=== PATIENT | female | born 1960 | race Caucasian/White ===

== ENCOUNTER → 2016-06-01 | Outpatient (CLI) | payer BC ==
[~2016-06-01] MED LIST: AMLO-114 PO; ATOR-24 PO; CHOL1000 PO; COEN75CA PO; GLC500 PO; HYDR-5688 PO; LOSA50TA6 PO; LOSARTAN HCTZ PO; MAGN400T6 PO; MULT-506 PO; [UNRECOGNIZED DRUG - REMARK] PO
--- NOTE | 2016-06-01 12:56 | DIAGNOSTIC IMAGING REPORT ---
CHEST 2 VIEWS ROUTINE CLINICAL HISTORY: Abdominal pain. COMPARISON STUDY: Chest radiograph July 14, 2006. FINDINGS: No lucency is identified under the hemidiaphragms to suggest pneumoperitoneum on this exam. Cardiac size is normal. Mediastinal contours are normal. There is no evidence of pulmonary edema. No consolidation is identified. IMPRESSION: No acute cardiopulmonary findings. Electronically signed by: Anselmo Emanuel M.D. 06/01/2016 12:55 PM Dictated Date/Time: 06/01/2016 12:54 PM
== END | disposition home or self-care (01) ==
LOC: C.RAD1850 11:50
PROVIDERS: ATTEND Family Medicine
DX: R10.9 Unspecified abdominal pain (principal)

== ENCOUNTER → 2016-06-01 | Outpatient (CLI) | payer BC ==
--- NOTE | 2016-06-01 09:47 | DIAGNOSTIC IMAGING REPORT ---
ABDOMEN COMPLETE (US) CLINICAL HISTORY: ABDOMINAL PAIN COMPARISON STUDY: No previous studies for comparison. FINDINGS: The liver is of increased echogenicity, consistent with hepatic steatosis. There is a 5 cm hypoechoic focus within the josé luis hepatis, possibly representing focal fatty sparing. Additional imaging is recommended in follow-up for confirmation. Multiple gallstones and sludge are visualized within the gallbladder. There is gallbladder wall thickening. In the setting of right upper quadrant abdominal pain, acute cholecystitis must be considered. There is dilatation of the common bile duct which measures 9 mm. The spleen measures 10 cm in length. No splenic masses are visualized. The right kidney measures 13.3 cm in length, the left kidney measures 13.4 cm in length. No renal masses are visualized. There is no evidence of hydronephrosis. There is a 32 mm hypoechoic lesion superior to the right kidney. This likely represents an adrenal nodule. Additional imaging is recommended in follow-up for further evaluation There is no evidence of abdominal aortic aneurysm. IMPRESSION: 1. Multiple gallstones and sludge within the gallbladder. Gallbladder wall thickening. In the setting of right upper quadrant abdominal pain, acute cholecystitis was be considered 2. 32 mm mass superior to the right kidney, likely adrenal in origin. Additional imaging is recommended in follow-up 3. Hepatic steatosis. 5 cm hypoechoic focus in the josé luis hepatis, possibly representing focal fatty sparing. Additional imaging is recommended in follow-up for confirmation. 4. This report will be called to the referring clinician. Electronically signed by: Sarthak Antonio M.D. 06/01/2016 9:46 AM Dictated Date/Time: 06/01/2016 9:39 AM
== END | disposition home or self-care (01) ==
LOC: C.ULTR 08:35
PROVIDERS: ATTEND Family Medicine
DX: K80.20 Calculus of gallbladder without cholecystitis without obstruction (principal); R19.09 Other intra-abdominal and pelvic swelling, mass and lump; K76.0 Fatty (change of) liver, not elsewhere classified

== ENCOUNTER 2016-06-08 10:51 | Day surgery (SDC) | payer BC, OTHER ==
[2016-06-03 15:58] VITALS: BMI 40.0
--- NOTE | 2016-06-07 14:25 | Anesthesiology Progress Note ---
Anesthesia Progress Note Date of Service Jun 07, 2016. Progress Notes Patient was chart review for PAT. Chart was not seen for review until Tuesday for surgery scheduled for Tuesday06/08/16. Patient's most recent PCP note from 06/01/16 was reviewed. Per plan from PCP note, patient was to be scheduled with general surgery for gallbladder issues/melissa. Patient also was ordered to have a CT scan done and referred to oncology for possible adrenal mass/nodule from 06/01/16 ultrasound. Per patient, when she was seen by Dr. Fermin (PCP) she was told adrenal mass was incidental finding and that it could be imaging error but that CT scan was recommended. Per patient, PCP told her that it was something that needed done in the future but was not emergent. Patient was seen by general surgery and scheduled for cholecystectomy. Surgeon aware of adrenal mass and did not feel that it would effect surgery. Note was initially written to PCP inquiring if CT scan needed done prior to surgery. Per PCP, " I think its better to get CT done before surgery." Nurse from PCP called patient to schedule CT scan for 06/08 but found that patient was already scheduled for melissa the same day. Patient decided she wanted to have gallbladder first. Spoke with PCP nurse, Travis, who stated that Dr. Fermin recommended that patient had CT done first but that patient did not have to cancel surgery without CT scan. PCP's office did not realize melissa had already been scheduled. He was leaving it to patient's discretion and would not clear patient for surgery without appointment. Patient surgery scheduled for tomorrow. Discussed with anesthesiologist. Patient was not seen in PAT for appointment. Patient will be re-evaluated AM of surgery. If any signs or symptoms of adrenal issues noted, patient surgery will be cancelled. Surgeon's office and patient were both informed of this.
[~2016-06-08] VITALS: Ht 175.3 cm; Wt 127.5 kg
[~2016-06-08 10:51] MED LIST changes: +CEFAZOLIN 3000 MG/65 ML D5W IV SCH; +HEPARIN SOD 5000 UNIT/0.5 ML CARP SQ SCH; -HYDR-5688 PO; +LACTATED RINGER'S 1000ML 1,000 ML IV SCH; -LOSARTAN HCTZ PO; -MULT-506 PO; -[UNRECOGNIZED DRUG - REMARK] PO
[2016-06-08 11:17] VITALS: BP 170/79; PULSE 73; TEMP 37.1; O2SAT 96; Ht 175.3 cm; Wt 127.5 kg
--- NOTE | 2016-06-08 11:49 | History & Physical Bridge Note ---
H&P Re-Evaluation Bridge Note: I have examined the patient, reviewed the History & Physical and in the interval since the performance of the History & Physical I have noted the following changes of clinical significance: No changes noted
[2016-06-08] MEDS ORDERED: SUCCINYLCHOLINE CHLORIDE 20 MG/ML 10 ML VIAL IV ONE (12:05)
[2016-06-08] MEDS ORDERED: ONDANSETRON INJ 2 MG/ML 2 ML VIAL ONE (12:05)
[2016-06-08] MEDS ORDERED: NEOSTIGMINE METHYLSULFATE 5 MG/5 ML SYR ONE (12:05)
[2016-06-08] MEDS ORDERED: EpHEDrine SULFATE INJ 50 MG/ML AMP ONE ×2 (12:05→13:07)
[2016-06-08] MEDS ORDERED: LIDOCAINE HCL 2% 2 ML VIAL (20MG/ML) ONE ×2 (12:05→13:04)
[2016-06-08] MEDS ORDERED: ROCURONIUM BROMIDE 10 MG/ML 5 ML VIAL ONE (12:05)
[2016-06-08] MEDS ORDERED: PROPOFOL IV EMULSION 10 MG/ML 20 ML VIAL IV ONE ×2 (12:05→13:04)
[2016-06-08] MEDS ORDERED: GLYCOPYRROLATE INJ 0.2 MG/ML VIAL ONE ×2 (12:05→13:05)
[2016-06-08] MEDS ORDERED: PHENYLEPHRINE HCL INJ 10 MG/ML VIAL ONE ×2 (12:05→13:07)
[2016-06-08] MEDS ORDERED: DEXAMETHASONE SOD INJ 4 MG/ML VIAL ONE (12:05)
[2016-06-08] MEDS ORDERED: FENTANYL CITRATE INJ 50 MCG/1 ML 2 ML VIAL ONE ×2 (12:06→12:31)
[2016-06-08] MEDS ORDERED: MIDAZOLAM HCL 1 MG/ML 2ML VIAL ONE (12:06)
[2016-06-08] MEDS ORDERED: ACETAMINOPHEN 1000 MG/100 ML IV IV ONE (12:08)
[2016-06-08] MEDS ORDERED: BUPIVACAINE/EPINEPHRINE 0.5% MPF 1:200,000 30 ML VIAL ONE (12:39)
[2016-06-08] MEDS ORDERED: ONDANSETRON INJ 2 MG/ML 2 ML VIAL IV PRN ×2 (13:15→14:15)
[2016-06-08] MEDS ORDERED: ATROPINE SULFATE 0.1 MG/ML 5ML SYR IV PRN (13:15)
[2016-06-08] MEDS ORDERED: HYDROmorphone INJ 2 MG/ML SYR/VIAL IV PRN (13:15)
[2016-06-08] MEDS ORDERED: LABETALOL HCL IV 5 MG/ML 20ML IV PRN (13:15)
[2016-06-08] MEDS ORDERED: SODIUM CHLORIDE 0.9% 1000ML 1,000 ML IV SCH (14:11)
[2016-06-08] MEDS ORDERED: HYDR-5688 PO (14:14)
[2016-06-08] MEDS ORDERED: HYDROCODONE/ACETAMOPHEN 5/325MG TAB PO PRN ×2 (14:15)
[2016-06-08] MEDS ORDERED: KETOROLAC TROMETHAMINE 30 MG/ML VIAL IV. PRN (14:15)
[2016-06-08] MEDS ORDERED: IBUPROFEN 600 MG TAB PO PRN (14:15)
--- NOTE | 2016-06-08 14:15 | Discharge Instructions ---
Discharge Instructions Admission Reason for Admission: Cholelithiasis Discharge Discharge Diagnosis / Problem: calculous cholecystits Discharge Goals Goal(s): Decrease discomfort, Improve function Activity Recommendations Activity Limitations: as noted below Lifting Limitations: no more than 10 pounds Exercise/Sports Limitations: until after follow-up appointment May Resume Sexual Activity: after follow-up appointment Shower/Bathe: tomorrow . Instructions / Follow-Up Instructions / Follow-Up follow up as scheduled Current Hospital Diet Patient's current hospital diet: Discharge Diet Recommended Diet: Regular Diet Procedures Procedures Performed: Laparoscopic Cholecystectomy Pending Studies Studies pending at discharge: yes List of pending studies: path report Medical Emergencies . Who to Call and When: Medical Emergencies: If at any time you feel your situation is an emergency, please call 911 immediately. . Non-Emergent Contact Non-Emergency issues call your: Primary Care Provider, Surgeon Call Non-Emergent contact if: temperature is above 101, wound has increased drainage, wound has increased redness, wound has increased pain . "Provider Documentation" section prepared by Rob Olson. VTE Core Measure Inpt VTE Proph given/why not?: Unfractionated heparin SQ, SCD's
--- NOTE | 2016-06-08 14:16 | [facility] Operative Report ---
Operative Report Operative Date Jun 08, 2016. Pre-Operative Diagnosis Calculus of Gallbladder with Chronic Cholecystitis Post-Operative Diagnosis calculous cholecystitis Procedure(s) Performed lap melissa Surgeon Dr. Olson Music Writer Surgeon(s) none Estimated Blood Loss 5 ml Findings large gallstones with mildly inflammed gallbladder Specimens A. Gallbladder Anesthesia get Complication(s) None Disposition Recovery Room / PACU I attest to the content of the Intraoperative Record and any orders documented therein. Any exceptions are noted below.
--- NOTE | 2016-06-08 14:50 | Anesthesiology Progress Note ---
Anesthesia Post Op Note Date & Time Jun 08, 2016 at 14:50 Vital Signs Pain Intensity: 0 Vital Signs Past 12 Hours Date Time Temp Pulse Resp B/P Pulse Ox O2 Delivery O2 Flow Rate FiO2 06/08/16 14:40 75 16 153/84 91 Room Air 06/08/16 14:30 82 16 161/84 96 Mask 10 06/08/16 14:20 89 16 161/79 96 Mask 10 06/08/16 14:11 36.0 91 16 169/76 96 Mask 10 06/08/16 11:17 37.1 73 18 170/79 96 Room Air Notes Mental Status: alert / awake / arousable, participated in evaluation Pt Amnestic to Procedure: Yes Nausea / Vomiting: adequately controlled Pain: adequately controlled Airway Patency, RR, SpO2: stable & adequate BP & HR: stable & adequate Hydration State: stable & adequate Anesthetic Complications: no major complications apparent
[2016-06-08 14:57] VITALS: BP 148/73; PULSE 80; TEMP 36.5; O2SAT 92
--- NOTE | 2016-06-08 15:06 | OPERATIVE REPORT ---
DATE OF OPERATION: 06/08/2016 PREOPERATIVE DIAGNOSIS: Calculus cholecystitis. POSTOPERATIVE DIAGNOSIS: Same. PROCEDURE: Laparoscopic cholecystectomy. SURGEON: Dr. Olson. ESTIMATED BLOOD LOSS: Approximately 25 mL. COMPLICATIONS: No immediate. ANESTHESIA: General. The patient tolerated the procedure well. OPERATIVE NOTE: After informed consent was obtained, the patient was taken to the operating suite and placed in supine position. After successful intubation, the abdomen was sterilely prepped and draped in usual fashion. A periumbilical incision made with an 11 blade scalpel and carried down through the soft tissue using electrocautery. The anterior rectus fascia was opened using electrocautery and two #0 Vicryl stay sutures were placed. Peritoneum was entered using blunt finger penetration. A finger sweep was performed to takedown adhesions. A 12 mm Alondra trocar was placed and the abdomen was insufflated 18 mmHg. Laparoscope was inserted and the abdomen was examined 360 degrees. A subxiphoid 5 mm port and 2 right upper quadrant 5 mm ports were placed under direct vision. The patient was placed in reverse Trendelenburg position slightly airplaned to the left. The gallbladder was slightly inflamed. We were able to grasp it and elevate it superiorly and laterally with graspers. I used small amount of electrocautery as well as blunt dissection to pull adhesions down off the neck of the gallbladder. I was then able to skeletonize the cystic duct using a [place] dissector. It was clipped twice proximally and once distally and transected. In similar fashion, the cystic artery was identified, skeletonized, clipped and divided. The gallbladder was removed from the gallbladder fossa using electrocautery. It was removed intact. There was some edema and some inflammation in the wall. We placed it into an EndoCatch bag. I had to extend the umbilical incision in order to incorporate the large stones. I was able to get it out. We then reinserted the trocar and insufflated the abdomen again. I thoroughly irrigated the right upper quadrant. At the end of the procedure, there was adequate hemostasis and no evidence of any bile leak. A quick look around the abdomen showed no other gross abnormalities. The trocars were all removed and the abdomen was desufflated. The fascia was closed in 2 separate [id number] sutures. The wounds were all irrigated and closed using 4-0 Monocryl. Marcaine was injected around them for postoperative analgesia and skin glue used as dressing. The patient was awakened, extubated, and transferred to recovery in stable condition. I attest to the content of the Intraoperative Record and any orders documented therein. Any exceptio ns are noted below.
[2016-06-08 15:30] VITALS: BP 148/77; PULSE 80; TEMP 36.3; O2SAT 92
[2016-06-08 16:00] VITALS: BP 139/80; PULSE 81; TEMP 36.4; O2SAT 92
== END 2016-06-08 16:32 | disposition home or self-care (01) ==
LOC: C.ACU 10:51
PROVIDERS: ATTEND Surgery
DX: K80.10 Calculus of gallbladder with chronic cholecystitis without obstruction (principal); I10 Essential (primary) hypertension; E11.9 Type 2 diabetes mellitus without complications; J45.909 Unspecified asthma, uncomplicated; E66.01 Morbid (severe) obesity due to excess calories; Z68.41 Body mass index [BMI] 40.0-44.9, adult; Z90.710 Acquired absence of both cervix and uterus; Z83.3 Family history of diabetes mellitus; Z82.49 Family history of ischemic heart disease and other diseases of the circulatory system

== ENCOUNTER 2016-06-14 00:20 | Inpatient (IN) | payer BC ==
[2016-06-14] VITALS (9 sets, daily range): BP systolic 136–177; BP diastolic 79–104; PULSE 73–79; TEMP 36.4–37.1; O2SAT 93–97; Ht 175.3 cm; Wt 126.0 kg
[~2016-06-14] VITALS: Ht 175.3 cm; Wt 126.0 kg
[~2016-06-14 00:20] MED LIST changes: -CEFAZOLIN 3000 MG/65 ML D5W IV SCH; -HEPARIN SOD 5000 UNIT/0.5 ML CARP SQ SCH; +HYDR-5688 PO; -LACTATED RINGER'S 1000ML 1,000 ML IV SCH
[2016-06-14] MEDS ORDERED: SODIUM CHLORIDE 0.9% 1000ML 1,000 ML IV STA (00:48)
[2016-06-14] MEDS ORDERED: MoRPHine SULFATE 2 MG/ML CARP IV STA (01:10)
[2016-06-14] MEDS ORDERED: ONDANSETRON INJ 2 MG/ML 2 ML VIAL IV STA (01:10)
[2016-06-14 01:16] LABS: BASO % 0.5 %; BASO ABS # 0.05 K/uL (0-0.2); COMPLETE YES; EOS % 8.5 %; HEMATOCRIT 40.6 % (37-47); IG% 0.5 %; LYMPH % 22.4 %; LYMPH ABS # 2.25 K/uL (1.2-3.4); MEAN CELL VOLUME 86.9 fL (80-100); MEAN CORPUSCULAR HEMOGLOBIN 29.3 pg (25-34); MEAN CORPUSCULAR HGB CONC 33.7 g/dl (32-36); MEAN PLATELET VOLUME 9.3 fL (7.4-10.4); NEUT % 60.1 %; PLATELET COUNT 371 K/uL (130-400); RED BLOOD COUNT 4.67 M/uL (4.2-5.4); WHITE BLOOD COUNT 10.03 K/uL (4.8-10.8)
[2016-06-14 01:28] LABS: PROTHROMBIN TIME (PATIENT) 10.4 SECONDS (9.0-12.0)
[2016-06-14 01:37] LABS: BUN/CREATININE RATIO 20.4 (10-20); CALCIUM 9.2 mg/dl (8.5-10.1); CREATININE 0.8 mg/dl (0.60-1.20); MAGNESIUM 2.2 mg/dl (1.8-2.4); POTASSIUM 3.8 mmol/L (3.5-5.1)
[2016-06-14 01:42] LABS: ALB/GLOB RATIO 0.8 (0.9-2); CKMB/CK RATIO 0.8 (0-3.0)
[2016-06-14] MEDS ORDERED: GLC500 PO (01:42)
[2016-06-14 01:45] LABS: URINE APPEARANCE CLOUDY (CLEAR); URINE COLOR DK YELLOW; URINE EPITHELIAL CELL AUTO >30 /lpf (0-5); URINE NITRITE POS (NEG); URINE PH 5.5 (4.5-7.5); URINE SPECIFIC GRAVITY 1.032 (1.000-1.030); UROBILINOGEN POS (NEG); ZZUR CULT IF INDIC CLEAN CATCH YES
[2016-06-14] MEDS ORDERED: SODIUM CHLORIDE 0.9% 500ML 500 ML IV STA (01:53)
[2016-06-14] MEDS ORDERED: OPTIRAY 320 IV PRN (02:15)
[2016-06-14 02:28] LABS: MANUAL MICROSCOPIC REQUIRED? NO; REVIEW REQ? YES; URINE BILIRUBIN 1+ (NEG)
[2016-06-14 02:39] LABS: URINE MUCUS PRESENT (NONE PRSENT)
[2016-06-14] MEDS ORDERED: CIPROFLOXACIN 400MG / 200ML D5W IV STA (03:30)
[2016-06-14] MEDS ORDERED: METRONIDAZOLE 500MG / 100ML NSS IV STA (03:30)
--- NOTE | 2016-06-14 03:51 | EMERGENCY ROOM VISIT NOTE ---
History First contact with patient: 00:29 Chief Complaint: CHEST PAIN Stated Complaint: CHEST PAIN,STOMACH PAIN,RASH S/P GALLBLADDER SURGE Nursing Triage Summary: Pt complains of chest pain and SOB since 10pm. Hx of gall bladder surgery on Tuesday. History of Present Illness The patient is a 56 year old female who presents to the Emergency Department by private vehicle for evaluation of her chest and stomach pain. She reports that she had a cholecystectomy performed by Dr. Olson last Tuesday in outpatient fashion. She reports that since that time she has had subjective fevers without taken her temperature. In addition, she is had a rash to her abdomen. She stopped her pain medication a few days ago as she reports that she was feeling better. Last evening she developed a episode of epigastric discomfort associated chest pain which lasted approximately one hour. She had no return of symptoms until this evening at 10 PM. At this point, her symptoms have been persistent. She describes it as "exactly like a gallbladder attack". She denies any shortness of breath. The patient reports no pain or radiation into her back, jaw, or arm. She reports no history of coronary artery disease. She does have history of hypertension as well as diabetes. She rates her current discomfort as an 8/10. She is tried nothing [id number] for her symptoms. She denies any fevers, chills, headaches, dizziness, lightheadedness, vomiting , hematemesis, hematochezia, melena, hematuria, or dysuria. Review of Systems A complete 10-point Review of Systems was discussed with the patient, with pertinent positives and negatives listed in the History of Present Illness. All remaining Review of Systems questions can be considered negative unless otherwise specified. Past Medical/Surgical History Medical Problems: (1) Elevated transaminase level (2) Esophageal Reflux (3) Hypertension (4) Obesity, Nos (5) Pneumonia, Organism Nos (6) Pre-diabetes (7) Total bilirubin, elevated Surgical Problems: (1) History of hysterectomy (2) S/P cholecystectomy Social History Smoking Status: Never Smoker Smokeless Tobacco Use: No Alcohol Use: none Drug Use: none Marital Status: Housing Status: lives with family Occupation Status: employed Current/Historical Medications Scheduled Amlodipine (Norvasc), 10 MG PO QPM Atorvastatin (Lipitor), 40 MG PO HS Cholecalciferol (Vitamin D3), 1,000 UNIT PO QAM Coenzyme Q10 (Ubidecarenone) (Co Q-10), 1 CAP PO NOON Losartan Potassium (Cozaar), 50 MG PO QAM Magnesium Oxide (Mag-Ox), 400 MG PO HS Metformin HCl (Metformin HCl), 500 MG PO DAILY Allergies Coded Allergies: No Known Allergies (Verified , 06/14/16) Physical Exam Vital Signs Date Time Temp Pulse Resp B/P Pulse Ox O2 Delivery O2 Flow Rate FiO2 06/14/16 04:30 73 06/14/16 04:03 72 16 183/102 97 06/14/16 02:30 84 16 183/99 97 Room Air 06/14/16 01:23 68 16 157/98 98 Room Air 06/14/16 00:42 99 Room Air 06/14/16 00:42 Room Air 06/14/16 00:38 69 06/14/16 00:24 36.4 75 20 143/89 98 Room Air Pain Rating (0-10): 8 Physical Exam VITAL SIGNS - Vital signs and nursing notes were reviewed. GENERAL - 56-year-old female appearing her stated age who is in no acute distress. Communicates well with provider and answers questions appropriately. LUNGS - Chest wall symmetric without accessory muscle use, intercostals retractions, or central cyanosis. Normal vesicular breath sounds CTA B/L. No wheezes, rales, or rhonchi appreciated. CARDIAC - RRR with S1/S2. No murmur, rubs, or gallops appreciated. Moderate reproducible TTP to the sternum. ABDOMEN - Abdominal contour obese and without pulsations or visible masses. Well -healing trocar sites throughout the abdomen. No erythema or warmth to touch. BS normoactive all four quadrants. Mild tenderness to palpation appreciated in the epigastrium. No guarding. No Rebound Tenderness. Negative Rovsing's. Negative Shea's. No palpable masses, hepatosplenomegaly, or ascites noted. EXTREMITIES - No clubbing or peripheral cyanosis. No pretibial edema present. PSYCH - A&Ox3 and cooperates fully with examiner. Pt is very pleasant and interacts well with examiner. Medical Decision & Procedures ER Provider Diagnostic Interpretation: X-ray the chest is obtained and reviewed by myself. No acute consolidations or cardiopulmonary processes appreciated per my interpretation. Radiologist's impression unavailable at the time of dictation. Radiological imaging and reports were reviewed by myself. Radiologist's Interpretation per [facility] as follows: CTA CHEST: No evidence of pulmonary embolus. No thoracic aortic dissection or aneurysm. Dependent atelectasis. Small focal region o air trapping within the spermatic aspect of the lower lobes. No pleural effusion or pneumothorax. Heart and pericardium are unremarkable. Subcentimeter mediastinal and hilar lymph nodes, likely reactive. No acute osseous abnormality. CT ABDOMEN & PELVIS: Post surgical changes within the anterior abdominal wall and gallbladder fossa consistent with recent cholecystectomy. No evidence of abscess. The liver, spleen, pancreas, and adrenal glands are unremarkable. Non-obstructing renal calculi within the right kidney. Otherwise, the kidneys, ureters and urinary bladder are unremarkable. Few scattered noninflamed colonic diverticula. The appendix is diminutive. No acute osseous abnormality. Laboratory Results Test 06/14/16 00:25 06/14/16 00:31 Urine Color DK YELLOW Urine Appearance CLOUDY (CLEAR) Urine pH 5.5 (4.5-7.5) Urine Specific [place] 1.032 (1.000-1.030) Urine Protein TRACE (NEG) Urine Glucose (UA) NEG (NEG) Urine Ketones TRACE (NEG) Urine Occult Blood NEG (NEG) Urine Nitrite POS (NEG) Urine Bilirubin 1+ (NEG) Urine Urobilinogen POS (NEG) Urine Leukocyte Esterase TRACE (NEG) Urine WBC (Auto) 1-5 /hpf (0-5) Urine RBC (Auto) 5-10 /hpf (0-4) Urine Hyaline Casts (Auto) 1-5 /lpf (0-5) Urine Epithelial Cells (Auto) >30 /lpf (0-5) Urine Bacteria (Auto) 1+ (NEG) Urine Renal Epithelial Cells /lpf (0-5) Urine Pathogenic Casts /lpf (0) Urine Mucus PRESENT (NONE PRSENT) RDW Standard Deviation 49.1 fL (36.4-46.3) RDW Coefficient of Variation 15.3 % (11.5-14.5) White Blood Count 10.03 K/uL (4.8-10.8) Red Blood Count 4.67 M/uL (4.2-5.4) Hemoglobin 13.7 g/dL (12.0-16.0) Hematocrit 40.6 % (37-47) Mean Corpuscular Volume 86.9 fL (80-100) Mean Corpuscular Hemoglobin 29.3 pg (25-34) Mean Corpuscular Hemoglobin Concent 33.7 g/dl (32-36) Platelet Count 371 K/uL (130-400) Mean Platelet Volume 9.3 fL (7.4-10.4) Neutrophils (%) (Auto) 60.1 % Lymphocytes (%) (Auto) 22.4 % Monocytes (%) (Auto) 8.0 % Eosinophils (%) (Auto) 8.5 % Basophils (%) (Auto) 0.5 % Neutrophils # (Auto) 6.03 K/uL (1.4-6.5) Lymphocytes # (Auto) 2.25 K/uL (1.2-3.4) Monocytes # (Auto) 0.80 K/uL (0.11-0.59) Eosinophils # (Auto) 0.85 K/uL (0-0.5) Basophils # (Auto) 0.05 K/uL (0-0.2) Immature Granulocyte % (Auto) 0.5 % Immature Granulocyte # (Auto) 0.05 K/uL (0.00-0.02) Prothrombin Time 10.4 SECONDS (9.0-12.0) Prothromb Time International Ratio 1.0 (0.9-1.1) Activated Partial Thromboplast Time 26.2 SECONDS (21.0-31.0) Partial Thromboplastin Ratio 1.0 Est Creatinine Clear Calc Drug Dose 112.8 ml/min Magnesium Level 2.2 mg/dl (1.8-2.4) Total Creatine Kinase 137 U/L (26-192) Creatine Kinase MB 1.1 ng/ml (0.5-3.6) Creatine Kinase MB Ratio 0.8 (0-3.0) Globulin 4.5 gm/dl (2.5-4.0) Albumin/Globulin Ratio 0.8 (0.9-2) Lipase 186 U/L (73-393) Medications Administered Medications (Trade) Dose Ordered Sig/Magnolia Route Start Time Stop Time Status Last Admin Dose Admin Sodium Chloride (Nss 1000ml) 1,000 ml @ 125 mls/hr Q8H STAT IV 06/14/16 00:48 06/14/16 06:06 DC 06/14/16 01:20 125 MLS/HR Morphine Sulfate (MoRPHine SULFATE INJ) 2 mg NOW STAT IV 06/14/16 01:10 06/14/16 01:12 DC 06/14/16 01:22 2 MG Ondansetron HCl 4 mg 4 mg NOW STAT IV 06/14/16 01:10 06/14/16 01:12 DC 06/14/16 01:20 4 MG Sodium Chloride (Nss 500ml) 500 ml @ 999 mls/hr Q31M STAT IV 06/14/16 01:53 06/14/16 02:23 DC 06/14/16 02:00 999 MLS/HR Ciprofloxacin/ Dextrose (Cipro / D5w) 400 mg NOW STAT IV 06/14/16 03:30 06/14/16 03:32 DC 06/14/16 05:09 400 MG Metronidazole (Flagyl / Nss) 500 mg NOW STAT IV 06/14/16 03:30 06/14/16 03:32 DC 06/14/16 04:02 500 MG Procedure Patient was placed on the desk monitor and monitored throughout the entire extent of their stay. In addition, the patient's pulse oximetry was monitored throughout the entire stay. Any abnormalities or aberrancies were addressed appropriately. ECG Indication: chest pain Rate (beats per minute): 73 Rhythm: normal sinus Findings: no acute ischemic change, no ectopy Comparison ECG Date: no prior available ED Course Patient was seen and evaluated by myself. Labs were drawn, saline lock in place. Patient was hydrated with normal saline at a rate of 125 mL per hour. She received 2 mg morphine and 4 mg Zofran. Chest x-ray and EKG were obtained. Laboratory results demonstrate no acute leukocytosis, worrisome anemia, or bandemia. The patient has no significant electrolyte abnormalities. Patient was found have transaminitis. Cardiac enzymes are negative. Patient was hydrated with a 500 mL normal saline bolus. I did discuss laboratory findings with the patient. CT of the chest and abdomen were obtained. CT results as above. I did discuss the case with Dr. Rivero of Gen. surgery. He suggests admitting the patient for further evaluation and management. Patient was covered with Cipro and Flagyl given UTI findings as well as true abdominal pathology. The patient was admitted to the [facility] hospitalist group for further evaluation and management. Patient admitted in stable condition. Medical Decision Given the patient's presentation and stated complaint, I did elect to perform the above-mentioned workup. The patient presents today complaining of epigastric abdominal discomfort as well as chest pain. Her pain is reproducible nature. She has no fever leukocytosis despite the recent surgery. Regardless, the patient's complaint of pain in her chest and some mild shortness of breath. D-dimer did not register. Cardiac enzymes are negative. EKG demonstrate no acute findings. Chest x-ray demonstrate no new findings as well. Given her elevated transaminase levels, I did elect to perform a CT scan of the abdomen and pelvis for rule out of retained stone versus any leakage from the common bile duct. CTA of the chest was performed as well to rule out PE as diagnosis. In a conversation with general surgery, it is felt best the patient be admitted for further evaluation and management for possibility of retained stone and possible need for ERCP. Patient was admitted to the hospitalist program for further evaluation and management. Patient admitted in stable condition. In the evaluation and treatment of this patient, the following differential diagnoses were considered: Gastritis, gastritis, ACS, RI, retained ductal stone , abscess, amongst others. Impression Primary Impression: Elevated transaminase level Additional Impressions: Status post cholecystectomy UTI (urinary tract infection) Departure Information Dispostion Admitted as an inpatient Condition FAIR Referrals Leigh Fermin M.D. (PCP) Patient Instructions [facility] Problem Qualifiers Additional Impressions: UTI (urinary tract infection) Urinary tract infection type: acute cystitis Hematuria presence: without hematuria Qualified Codes: N30.00 - Acute cystitis without hematuria
--- NOTE | 2016-06-14 04:51 | History and Physical ---
History & Physical Date & Time of Service: Jun 14, 2016 at 04:16 Chief Complaint: Chest Pain,Stomach Pain,Rash S/P Gallbladder Surge Primary Care Physician: Leigh Fermin M.D. History of Present Illness Source: patient, clinic records, hospital records Mrs Smith is a 56 year old female with s/p recent cholecystectomy evaluated in the ER for constant lower chest and epigastric pain started 10:00pm lasted to 3am. Worse right in the middle and end. Sharp pain. [place] like previous gallbladder pain. Constant the whole. No pain currently. Severity 8/10 at worse. Initially 6-7/10. Not associated with eating. Not much appetite since surgery. [place] flushed, no diaphoresis, no shortness of breath, nausea or vomiting. Did not radiate. Not worse on exertion. Took some antacids which did not help. Cholecystectomy - on Tue. Fevers off and on since the surgery ranging from 99-101. Called surgery - Dr Olson, recommended going to ER if vomiting or fever 102. Rash since the surgery getting worse, itchy, started under her right breast and now both sides. No previous tattoos. No previous blood products. No previous known hepatitis exposure. No recent travel in last 3 months. 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[employer]) Immunizations History of Influenza Vaccine: No History of Tetanus Vaccine?: No History of Pneumococcal: No History of Hepatitis B Vaccine: No Multi-Drug Resistant Organisms History of MDRO: No Allergies Coded Allergies: No Known Allergies (Verified , 06/14/16) Home Medications Scheduled Amlodipine (Norvasc), 10 MG PO QPM Atorvastatin (Lipitor), 40 MG PO HS Cholecalciferol (Vitamin D3), 1,000 UNIT PO QAM Coenzyme Q10 (Ubidecarenone) (Co Q-10), 1 CAP PO NOON Losartan Potassium (Cozaar), 50 MG PO QAM Magnesium Oxide (Mag-Ox), 400 MG PO HS Metformin HCl (Metformin HCl), 500 MG PO DAILY Review of Systems Constitutional: + chills, + fever Eyes: No worsening of vision ENT: No hearing loss Respiratory: No cough, No dyspnea at rest, No dyspnea on exertion, No hemoptysis, No shortness of breath, No sputum, No wheezing Cardiovascular: + chest pain (see HPI), No PND, No claudication, No edema, No orthopnea, No palpitations Abdomen: + pain (epigastric), No GI bleeding, No constipation (last went on Tuesday), No diarrhea, No nausea, No vomiting Musculoskeletal: No calf pain, No joint pain, No muscle pain, No swelling Genitourinary - Female: No dysuria, No hematuria, No urinary frequency, No urinary incontinence, No urinary retention, No urinary urgency Psychiatric: No anxiety, No depression symptoms Endocrine: No excessive thirst, No excessive urination Hematologic / Lymphatic: No abnormal bleeding/bruising, No clotting problems, No swollen lymph nodes Integumentary: + itch, + rash, No bleeding Physical Exam Vital Signs Date Time Temp Pulse Resp B/P Pulse Ox O2 Delivery O2 Flow Rate FiO2 06/14/16 04:03 72 16 183/102 97 06/14/16 02:30 84 16 183/99 97 Room Air 06/14/16 01:23 68 16 157/98 98 Room Air 06/14/16 00:42 99 Room Air 06/14/16 00:42 Room Air 06/14/16 00:38 69 06/14/16 00:24 36.4 75 20 143/89 98 Room Air General Appearance: WD/WN, no apparent distress Head: normocephalic, atraumatic Eyes: normal inspection, PERRL, EOMI ENT: normal ENT inspection, pharynx normal Neck: supple, thyroid normal, no JVD Respiratory/Chest: chest non-tender, lungs clear, normal breath sounds, no respiratory distress, no accessory muscle use Cardiovascular: regular rate, rhythm, no murmur, normal peripheral pulses Abdomen/GI: normal bowel sounds, non tender, soft Back: no CVA tenderness Extremities/Musculoskelatal: normal inspection, no pedal edema, normal range of motion Neurologic/Psych: 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, no motor/sensory deficits, alert, normal mood/affect, oriented x 3 Skin: + rash (macular papular rash in groin and bilateral abdomen, confluent, blanching) Diagnostics Laboratory Results Results Past 24 Hours Test 06/14/16 00:25 06/14/16 00:31 Range/Units Urine Color DK YELLOW Urine Appearance CLOUDY CLEAR Urine pH 5.5 4.5-7.5 Urine Specific [place] 1.032 1.000-1.030 Urine Protein TRACE NEG Urine Glucose (UA) NEG NEG Urine Ketones TRACE NEG Urine Occult Blood NEG NEG Urine Nitrite POS NEG Urine Bilirubin 1+ NEG Urine Urobilinogen POS NEG Urine Leukocyte Esterase TRACE NEG Urine WBC (Auto) 1-5 0-5 /hpf Urine RBC (Auto) 5-10 0-4 /hpf Urine Hyaline Casts (Auto) 1-5 0-5 /lpf Urine Epithelial Cells (Auto) >30 0-5 /lpf Urine Bacteria (Auto) 1+ NEG Urine Renal Epithelial Cells 0-5 /lpf Urine Pathogenic Casts 0 /lpf Urine Mucus PRESENT NONE PRSENT White Blood Count 10.03 4.8-10.8 K/uL Red Blood Count 4.67 4.2-5.4 M/uL Hemoglobin 13.7 12.0-16.0 g/dL Hematocrit 40.6 37-47 % Mean Corpuscular Volume 86.9 80-100 fL Mean Corpuscular Hemoglobin 29.3 25-34 pg Mean Corpuscular Hemoglobin Concent 33.7 32-36 g/dl Platelet Count 371 130-400 K/uL Mean Platelet Volume 9.3 7.4-10.4 fL Neutrophils (%) (Auto) 60.1 % Lymphocytes (%) (Auto) 22.4 % Monocytes (%) (Auto) 8.0 % Eosinophils (%) (Auto) 8.5 % Basophils (%) (Auto) 0.5 % Neutrophils # (Auto) 6.03 1.4-6.5 K/uL Lymphocytes # (Auto) 2.25 1.2-3.4 K/uL Monocytes # (Auto) 0.80 0.11-0.59 K/uL Eosinophils # (Auto) 0.85 0-0.5 K/uL Basophils # (Auto) 0.05 0-0.2 K/uL RDW Standard Deviation 49.1 36.4-46.3 fL RDW Coefficient of Variation 15.3 11.5-14.5 % Immature Granulocyte % (Auto) 0.5 % Immature Granulocyte # (Auto) 0.05 0.00-0.02 K/uL Prothrombin Time 10.4 9.0-12.0 SECONDS Prothromb Time International Ratio 1.0 0.9-1.1 Activated Partial Thromboplast Time 26.2 21.0-31.0 SECONDS Partial Thromboplastin Ratio 1.0 Sodium Level 145 136-145 mmol/L Potassium Level 3.8 3.5-5.1 mmol/L Chloride Level 106 98-107 mmol/L Carbon Dioxide Level 27 21-32 mmol/L Anion Gap 12.0 3-11 mmol/L Blood Urea Nitrogen 16 7-18 mg/dl Creatinine 0.80 0.60-1.20 mg/dl Est Creatinine Clear Calc Drug Dose 112.8 ml/min Estimated GFR () 95.5 Estimated GFR (Non- 82.4 BUN/Creatinine Ratio 20.4 10-20 Random Glucose 159 70-99 mg/dl Calcium Level 9.2 8.5-10.1 mg/dl Magnesium Level 2.2 1.8-2.4 mg/dl Total Bilirubin 1.2 0.2-1 mg/dl Aspartate Amino Transf (AST/SGOT) 300 15-37 U/L Alanine Aminotransferase (ALT/SGPT) 432 12-78 U/L Alkaline Phosphatase 578 45-117 U/L Total Creatine Kinase 137 26-192 U/L Creatine Kinase MB 1.1 0.5-3.6 ng/ml Creatine Kinase MB Ratio 0.8 0-3.0 Total Protein 8.0 6.4-8.2 gm/dl Albumin 3.5 3.4-5.0 gm/dl Globulin 4.5 2.5-4.0 gm/dl Albumin/Globulin Ratio 0.8 0.9-2 Lipase 186 73-393 U/L Microbiology Results 06/14/16 Urine Culture, Received Pending Diagnostic Radiology CT ABD/PELVIS IV CONTRAST ONLY CLINICAL HISTORY: Epigastric pain. Elevated LFTs. COMPARISON STUDY: Abdominal ultrasound dated 06/01/2016 TECHNIQUE: Following the IV administration of 91 mL of Optiray-320, CT scan of the abdomen and pelvis was performed from the lung bases to the proximal femurs. Images are reviewed in the axial, sagittal, and coronal planes. IV contrast was administered without complication. CT DOSE: 2436.10 mGy.cm FINDINGS: Lower chest: There are mild basilar atelectatic changes. Liver: There is hepatic steatosis. Gallbladder: Surgically absent. There is infiltration of the fat adjacent to the gallbladder resection bed. Spleen: Normal in size and attenuation. Pancreas: Unremarkable. Adrenal glands: There is a 35mm right adrenal gland nodule. Kidneys: There is a nonobstructing 5 mm lower pole right renal calculus. Bowel: There are no transition zones indicate bowel obstruction. There is no evidence of acute appendicitis. There is colonic diverticulosis. There is no evidence of acute diverticulitis. There is infiltration of the fat in the periumbilical region. Peritoneum: There is no intraperitoneal free air or abdominal ascites. Vasculature: The abdominal aorta is normal in course and caliber. Adenopathy: None. Pelvic viscera: The uterus appears surgically absent. Skeletal structures: No destructive osseous lesions are seen. IMPRESSION: 1. No evidence of bowel obstruction. No evidence of free air 2. Diverticulosis. No evidence of acute diverticulitis 3. No evidence of acute appendicitis 4. Surgically absent gallbladder 5. Infiltration the fat in the periumbilical region, and gallbladder fossa, consistent with history of recent cholecystectomy. Electronically signed by: Sarthak Antonio M.D. 06/14/2016 6:31 AM Dictated Date/Time: 06/14/2016 6:27 AM CXR normal, No Pneumothorax, No Hemothorax, No Infiltrate, No Mass, No Effusion EKG NSR 73 bpm, no ischemic changes. Impression Assessment and Plan 56 yo female presents with epigastric pain s/p lap melissa. Elevated LFTs - given history most likely secondary to retained stones, however since she is now pain free when seen she may have passed them. - GI consult - ERCP vs. MRCP - Keep NPO expect meds for possible ERCP - will continue cipro and metronidazole currently to cover for cholangitis given previous fever/chills. Maculopapular rash - likely secondary to cleansing solution for surgery given distribution - Benadryl PRN HTN - Continue losartan, amlodipine Hyperlipidemia - continue atorvastatin Pre-diabetes - holding metformin due to contrast given for CT VTE Prophylaxis - lovenox 40 mg SQ - SCDs - TEDs Code - Full Disposition - admit to med/surg Resident Physician Supervision Note: Pt examined independently. I discussed the case with the resident and agree with the findings and plan as documented in the note. Any exceptions or clarifications are listed here: Admitted with abd pain post melissa - possible evidence of retained stone with ductal dilitation OE AAO x 3 S1,2 R CTAB + mildly tender - however pt is post-op P: Pt to be evaluated by GI - her pain has improved so that it is possible she has passed a stone Pending GI eval Trend LFTs Documented By: Jordin Bender Level of Care Med/Surg Resuscitation Status FULL RESUSCITATION Resident Tracking Resident Involvement: Resident Care Provided Care Provided: Adult Hospital Medicine
[2016-06-14] MEDS ORDERED: ACETAMINOPHEN 325 MG TAB PO PRN (05:00)
--- NOTE | 2016-06-14 06:17 | Medical Consult ---
Consultation Date of Consultation: Jun 14, 2016. 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[employer]) Allergies Coded Allergies: No Known Allergies (Verified , 06/14/16) Current Inpatient Medications Current Inpatient Medications Medications (Trade) Dose Ordered Sig/[place] Route Start Time Stop Time Status Last Admin Dose Admin Ioversol (Optiray 320) 100 ml UD PRN IV 06/14/16 02:15 06/18/16 02:14 Acetaminophen (Tylenol Tab) 650 mg Q4H PRN PO 06/14/16 05:00 07/14/16 04:59 Amlodipine Besylate (Norvasc Tab) 10 mg QPM PO 06/14/16 21:00 07/14/16 20:59 Atorvastatin Calcium (Lipitor Tab) 40 mg HS PO 06/14/16 21:00 07/14/16 20:59 Cholecalciferol (Vitamin D Tab) 1,000 inter.unit QAM PO 06/14/16 09:00 07/14/16 08:59 Losartan Potassium (coZAAR TAB) 50 mg QAM PO 06/14/16 09:00 07/14/16 08:59 Magnesium Oxide 400 mg 400 mg HS PO 06/14/16 21:00 07/14/16 20:59 Potassium Chloride/Sodium Chloride (Nss + 20meq KCl 1000ml) 1,000 ml @ 150 mls/hr Q6H40M IV 06/14/16 06:30 07/14/16 06:29 Review of Systems Constitutional: + fever, No chills Respiratory: No cough, No sputum Cardiovascular: No chest pain Abdomen: + nausea, + pain, No vomiting Physical Exam Date Time Temp Pulse Resp B/P Pulse Ox O2 Delivery O2 Flow Rate FiO2 06/14/16 05:15 37.0 79 18 170/100 97 Room Air 06/14/16 05:11 73 16 177/104 96 Room Air 06/14/16 04:30 73 06/14/16 04:03 72 16 183/102 97 06/14/16 02:30 84 16 183/99 97 Room Air 06/14/16 01:23 68 16 157/98 98 Room Air 06/14/16 00:42 99 Room Air 06/14/16 00:42 Room Air 06/14/16 00:38 69 06/14/16 00:24 36.4 75 20 143/89 98 Room Air General Appearance: no apparent distress Eyes: sclerae normal Neck: supple Respiratory/Chest: no respiratory distress Cardiovascular: regular rate, rhythm Abdomen/GI: soft (mild upper abd tenderness) Extremities/Musculoskelatal: no pedal edema Neurologic/Psych: alert Skin: no rash Laboratory Results Last 24 Hours Test 06/14/16 00:25 06/14/16 00:31 06/14/16 06:00 Urine Color DK YELLOW Urine Appearance CLOUDY Urine pH 5.5 Urine Specific [place] 1.032 Urine Protein TRACE Urine Glucose (UA) NEG Urine Ketones TRACE Urine Occult Blood NEG Urine Nitrite POS Urine Bilirubin 1+ Urine Urobilinogen POS Urine Leukocyte Esterase TRACE Urine WBC (Auto) 1-5 /hpf Urine RBC (Auto) 5-10 /hpf Urine Hyaline Casts (Auto) 1-5 /lpf Urine Epithelial Cells (Auto) >30 /lpf Urine Bacteria (Auto) 1+ Urine Renal Epithelial Cells /lpf Urine Pathogenic Casts /lpf Urine Mucus PRESENT White Blood Count 10.03 K/uL Red Blood Count 4.67 M/uL Hemoglobin 13.7 g/dL Hematocrit 40.6 % Mean Corpuscular Volume 86.9 fL Mean Corpuscular Hemoglobin 29.3 pg Mean Corpuscular Hemoglobin Concent 33.7 g/dl Platelet Count 371 K/uL Mean Platelet Volume 9.3 fL Neutrophils (%) (Auto) 60.1 % Lymphocytes (%) (Auto) 22.4 % Monocytes (%) (Auto) 8.0 % Eosinophils (%) (Auto) 8.5 % Basophils (%) (Auto) 0.5 % Neutrophils # (Auto) 6.03 K/uL Lymphocytes # (Auto) 2.25 K/uL Monocytes # (Auto) 0.80 K/uL Eosinophils # (Auto) 0.85 K/uL Basophils # (Auto) 0.05 K/uL RDW Standard Deviation 49.1 fL RDW Coefficient of Variation 15.3 % Immature Granulocyte % (Auto) 0.5 % Immature Granulocyte # (Auto) 0.05 K/uL Prothrombin Time 10.4 SECONDS Prothromb Time International Ratio 1.0 Activated Partial Thromboplast Time 26.2 SECONDS Partial Thromboplastin Ratio 1.0 Sodium Level 145 mmol/L Potassium Level 3.8 mmol/L Chloride Level 106 mmol/L Carbon Dioxide Level 27 mmol/L Anion Gap 12.0 mmol/L Blood Urea Nitrogen 16 mg/dl Creatinine 0.80 mg/dl Est Creatinine Clear Calc Drug Dose 112.8 ml/min Estimated GFR () 95.5 Estimated GFR (Non- 82.4 BUN/Creatinine Ratio 20.4 Random Glucose 159 mg/dl Calcium Level 9.2 mg/dl Magnesium Level 2.2 mg/dl Total Bilirubin 1.2 mg/dl Aspartate Amino Transf (AST/SGOT) 300 U/L Alanine Aminotransferase (ALT/SGPT) 432 U/L Alkaline Phosphatase 578 U/L Total Creatine Kinase 137 U/L Creatine Kinase MB 1.1 ng/ml Creatine Kinase MB Ratio 0.8 Total Protein 8.0 gm/dl Albumin 3.5 gm/dl Globulin 4.5 gm/dl Albumin/Globulin Ratio 0.8 Lipase 186 U/L Assessment & Plan 06/14/16- adm with possible CBD obstruction- from debris- stones / sludge likely IV atbx and GI evaluation. Will follow Pts developed pancreatitis from ERCP
[2016-06-14] MEDS: NSS + 20MEQ KCL 1000ML 1,000 ML IV SCH ×3 (06:29→20:43)
--- NOTE | 2016-06-14 06:33 | DIAGNOSTIC IMAGING REPORT ---
CT ABD/PELVIS IV CONTRAST ONLY CLINICAL HISTORY: Epigastric pain. Elevated LFTs. COMPARISON STUDY: Abdominal ultrasound dated 06/01/2016 TECHNIQUE: Following the IV administration of 91 mL of Optiray-320, CT scan of the abdomen and pelvis was performed from the lung bases to the proximal femurs. Images are reviewed in the axial, sagittal, and coronal planes. IV contrast was administered without complication. CT DOSE: 2436.10 mGy.cm FINDINGS: Lower chest: There are mild basilar atelectatic changes. Liver: There is hepatic steatosis. Gallbladder: Surgically absent. There is infiltration of the fat adjacent to the gallbladder resection bed. Spleen: Normal in size and attenuation. Pancreas: Unremarkable. Adrenal glands: There is a 35mm right adrenal gland nodule. Kidneys: There is a nonobstructing 5 mm lower pole right renal calculus. Bowel: There are no transition zones indicate bowel obstruction. There is no evidence of acute appendicitis. There is colonic diverticulosis. There is no evidence of acute diverticulitis. There is infiltration of the fat in the periumbilical region. Peritoneum: There is no intraperitoneal free air or abdominal ascites. Vasculature: The abdominal aorta is normal in course and caliber. Adenopathy: None. Pelvic viscera: The uterus appears surgically absent. Skeletal structures: No destructive osseous lesions are seen. IMPRESSION: 1. No evidence of bowel obstruction. No evidence of free air 2. Diverticulosis. No evidence of acute diverticulitis 3. No evidence of acute appendicitis 4. Surgically absent gallbladder 5. Infiltration the fat in the periumbilical region, and gallbladder fossa, consistent with history of recent cholecystectomy. Electronically signed by: Sarthak Antonio M.D. 06/14/2016 6:31 AM Dictated Date/Time: 06/14/2016 6:27 AM
[2016-06-14 06:37] LABS: BASO % 0.4 %; BASO ABS # 0.03 K/uL (0-0.2); COMPLETE YES; EOS % 3.9 %; HEMATOCRIT 37.2 % (37-47); IG% 0.5 %; LYMPH % 23.3 %; LYMPH ABS # 1.87 K/uL (1.2-3.4); MEAN CELL VOLUME 86.9 fL (80-100); MEAN CORPUSCULAR HEMOGLOBIN 28.5 pg (25-34); MEAN CORPUSCULAR HGB CONC 32.8 g/dl (32-36); MEAN PLATELET VOLUME 8.8 fL (7.4-10.4); MONO % 4.1 %; NEUT % 67.8 %; PLATELET COUNT 333 K/uL (130-400); RED BLOOD COUNT 4.28 M/uL (4.2-5.4); WHITE BLOOD COUNT 8.02 K/uL (4.8-10.8)
--- NOTE | 2016-06-14 06:52 | DIAGNOSTIC IMAGING REPORT ---
CHEST ONE VIEW PORTABLE CLINICAL HISTORY: Atypical chest pain. History of cholecystectomy. COMPARISON STUDY: 06/01/2016 FINDINGS: The heart is normal in size. There is no failure. There is no lobar consolidation. There are low lung volumes with hypoventilatory changes the lung bases.[ IMPRESSION: Low lung volumes with mild hypoventilatory changes the lung bases Electronically signed by: Sarthak Antonio M.D. 06/14/2016 6:51 AM Dictated Date/Time: 06/14/2016 6:51 AM
[2016-06-14 07:07] LABS: BUN/CREATININE RATIO 17.2 (10-20); CREATININE 0.78 mg/dl (0.60-1.20)
--- NOTE | 2016-06-14 07:35 | DIAGNOSTIC IMAGING REPORT ---
CHEST CTA for PULMONARY ARTERIES CT DOSE: HISTORY: Atypical chest pain. TECHNIQUE: Multiaxial CT images of the chest were performed following the intravenous administration of contrast to evaluate the pulmonary arteries. Maximal intensity projection images were also obtained. COMPARISON STUDY: Chest 06/24/2016. FINDINGS: There is a normal caliber thoracic aorta with no evidence for dissection. There is no evidence for pulmonary embolus. No pleural effusions. No pneumothorax. The liver and spleen are unremarkable. No mediastinal or hilar lymphadenopathy. Infiltration of the fat of the gallbladder fossa consistent with recent cholecystectomy. Bibasilar linear densities consistent with subsegmental atelectasis. IMPRESSION: No evidence for pulmonary embolus. Electronically signed by: Sonny Mccord M.D. 06/14/2016 7:33 AM Dictated Date/Time: 06/14/2016 7:29 AM
[2016-06-14] MEDS ORDERED: DiphenhydrAMINE 2%/ZINC 0.1% CREAM 28GM TUBE EXT SCH (08:15)
[2016-06-14] MEDS ORDERED: METFORMIN HCL 500 MG TAB PO SCH (09:00)
[2016-06-14] MEDS: CHOLECALCIFEROL 1000 INTER.UNIT TAB PO SCH (09:19)
[2016-06-14] MEDS: LOSARTAN POTASSIUM 50 MG TAB PO SCH (09:24)
[2016-06-14 10:06] LABS: URINE APPEARANCE CLOUDY (CLEAR); URINE COLOR DK YELLOW; URINE EPITHELIAL CELL AUTO >30 /lpf (0-5); URINE NITRITE NEG (NEG); URINE SPECIFIC GRAVITY 1.028 (1.000-1.030); UROBILINOGEN POS (NEG)
[2016-06-14 10:13] LABS: MANUAL MICROSCOPIC REQUIRED? NO; REVIEW REQ? NO; URINE BILIRUBIN 1+ (NEG)
--- NOTE | 2016-06-14 11:19 | Family Medicine Progress Note ---
Progress Note Date of Service Jun 14, 2016. Subjective Pt evaluation today including: conversation w/ patient, physical exam, chart review, lab review, conversation w/ area development consultant Pain: 0/10 PO Intake: NPO Voiding: no voiding problems Patient states that her pain has completely resolved; rash is still ongoing Has concerns about the ERCP potential because of her husbands reaction to it in the past. questions and concerns were discussed Constitutional: No fever Eyes: No worsening of vision ENT: No hearing loss Respiratory: No cough, No dyspnea on exertion, No shortness of breath, No sputum, No wheezing Cardiovascular: No chest pain Abdomen: No constipation, No diarrhea, No nausea, No pain, No vomiting Musculoskeletal: No joint pain, No muscle pain Female : No dysuria Neurologic: No balance problems, No numbness/tingling, No paralysis, No weakness Endo: No fatigue Skin: + rash Medications Medications Administered Medications (Trade) Dose Ordered Sig/[place] Route Start Time Stop Time Status Last Admin Dose Admin Sodium Chloride (Nss 1000ml) 1,000 ml @ 125 mls/hr Q8H STAT IV 06/14/16 00:48 06/14/16 06:06 DC 06/14/16 01:20 125 MLS/HR Morphine Sulfate (MoRPHine SULFATE INJ) 2 mg NOW STAT IV 06/14/16 01:10 06/14/16 01:12 DC 06/14/16 01:22 2 MG Ondansetron HCl 4 mg 4 mg NOW STAT IV 06/14/16 01:10 06/14/16 01:12 DC 06/14/16 01:20 4 MG Sodium Chloride (Nss 500ml) 500 ml @ 999 mls/hr Q31M STAT IV 06/14/16 01:53 06/14/16 02:23 DC 06/14/16 02:00 999 MLS/HR Ciprofloxacin/ Dextrose (Cipro / D5w) 400 mg NOW STAT IV 06/14/16 03:30 06/14/16 03:32 DC 06/14/16 05:09 400 MG Metronidazole (Flagyl / Nss) 500 mg NOW STAT IV 06/14/16 03:30 06/14/16 03:32 DC 06/14/16 04:02 500 MG Cholecalciferol (Vitamin D Tab) 1,000 inter.unit QAM PO 06/14/16 09:00 07/14/16 08:59 06/14/16 09:19 1,000 INTER.UNIT Losartan Potassium 50 mg 50 mg QAM PO 06/14/16 09:00 07/14/16 08:59 06/14/16 09:24 50 MG Potassium Chloride/Sodium Chloride (Nss + 20meq KCl 1000ml) 1,000 ml @ 150 mls/hr Q6H40M IV 06/14/16 06:30 07/14/16 06:29 06/14/16 06:29 150 MLS/HR Diphenhydramine HCl (Benadryl Extra Strength Cream) 1 appln UD EXT 06/14/16 08:15 07/14/16 08:14 06/14/16 09:50 1 APPLN Objective Vital Signs Date Time Temp Pulse Resp B/P Pulse Ox O2 Delivery O2 Flow Rate FiO2 06/14/16 09:21 75 158/98 06/14/16 09:06 97 Room Air 06/14/16 08:28 37.0 79 20 136/86 97 Room Air 06/14/16 08:05 97 Room Air 06/14/16 06:06 36.4 16 177/104 Room Air 06/14/16 05:15 37.0 79 18 170/100 97 Room Air 06/14/16 05:11 73 16 177/104 96 Room Air 06/14/16 04:30 73 06/14/16 04:03 72 16 183/102 97 06/14/16 02:30 84 16 183/99 97 Room Air 06/14/16 01:23 68 16 157/98 98 Room Air 06/14/16 00:42 99 Room Air 06/14/16 00:42 Room Air 06/14/16 00:38 69 06/14/16 00:24 36.4 75 20 143/89 98 Room Air Physical Exam General Appearance: WD/WN, no apparent distress Eyes: normal inspection ENT: normal ENT inspection Neck: supple Respiratory/Chest: lungs clear, normal breath sounds, no respiratory distress, no accessory muscle use Cardiovascular: regular rate, rhythm, no murmur Abdomen: normal bowel sounds, non tender, soft, + pertinent finding (wounds are clean dry and intact) Extremities: normal range of motion, non-tender, no pedal edema, no calf tenderness Neurologic/Psychiatric: alert, normal mood/affect, oriented x 3 Skin: normal color, warm/dry, + pertinent finding (maculopapular rash on abdomen) Laboratory Results Results Past 24 Hours Test 06/14/16 00:25 06/14/16 00:31 06/14/16 06:24 06/14/16 09:45 Range/Units Urine Color DK YELLOW DK YELLOW Urine Appearance CLOUDY CLOUDY CLEAR Urine pH 5.5 6.0 4.5-7.5 Urine Specific [place] 1.032 1.028 1.000-1.030 Urine Protein TRACE NEG NEG Urine Glucose (UA) NEG NEG NEG Urine Ketones TRACE NEG NEG Urine Occult Blood NEG NEG NEG Urine Nitrite POS NEG NEG Urine Bilirubin 1+ 1+ NEG Urine Urobilinogen POS POS NEG Urine Leukocyte Esterase TRACE NEG NEG Urine WBC (Auto) 1-5 1-5 0-5 /hpf Urine RBC (Auto) 5-10 0-4 0-4 /hpf Urine Hyaline Casts (Auto) 1-5 1-5 0-5 /lpf Urine Epithelial Cells (Auto) >30 >30 0-5 /lpf Urine Bacteria (Auto) 1+ 2+ NEG Urine Renal Epithelial Cells 0-5 /lpf Urine Pathogenic Casts 0 /lpf Urine Mucus PRESENT NONE PRSENT White Blood Count 10.03 8.02 4.8-10.8 K/uL Red Blood Count 4.67 4.28 4.2-5.4 M/uL Hemoglobin 13.7 12.2 12.0-16.0 g/dL Hematocrit 40.6 37.2 37-47 % Mean Corpuscular Volume 86.9 86.9 80-100 fL Mean Corpuscular Hemoglobin 29.3 28.5 25-34 pg Mean Corpuscular Hemoglobin Concent 33.7 32.8 32-36 g/dl Platelet Count 371 333 130-400 K/uL Mean Platelet Volume 9.3 8.8 7.4-10.4 fL Neutrophils (%) (Auto) 60.1 67.8 % Lymphocytes (%) (Auto) 22.4 23.3 % Monocytes (%) (Auto) 8.0 4.1 % Eosinophils (%) (Auto) 8.5 3.9 % Basophils (%) (Auto) 0.5 0.4 % Neutrophils # (Auto) 6.03 5.44 1.4-6.5 K/uL Lymphocytes # (Auto) 2.25 1.87 1.2-3.4 K/uL Monocytes # (Auto) 0.80 0.33 0.11-0.59 K/uL Eosinophils # (Auto) 0.85 0.31 0-0.5 K/uL Basophils # (Auto) 0.05 0.03 0-0.2 K/uL RDW Standard Deviation 49.1 49.1 36.4-46.3 fL RDW Coefficient of Variation 15.3 15.3 11.5-14.5 % Immature Granulocyte % (Auto) 0.5 0.5 % Immature Granulocyte # (Auto) 0.05 0.04 0.00-0.02 K/uL Prothrombin Time 10.4 9.0-12.0 SECONDS Prothromb Time International Ratio 1.0 0.9-1.1 Activated Partial Thromboplast Time 26.2 21.0-31.0 SECONDS Partial Thromboplastin Ratio 1.0 Sodium Level 145 144 136-145 mmol/L Potassium Level 3.8 4.0 3.5-5.1 mmol/L Chloride Level 106 107 98-107 mmol/L Carbon Dioxide Level 27 26 21-32 mmol/L Anion Gap 12.0 11.0 3-11 mmol/L Blood Urea Nitrogen 16 13 7-18 mg/dl Creatinine 0.80 0.78 0.60-1.20 mg/dl Est Creatinine Clear Calc Drug Dose 112.8 114.6 ml/min Estimated GFR () 95.5 98.5 Estimated GFR (Non- 82.4 85.0 BUN/Creatinine Ratio 20.4 17.2 10-20 Random Glucose 159 183 70-99 mg/dl Calcium Level 9.2 9.0 8.5-10.1 mg/dl Magnesium Level 2.2 1.8-2.4 mg/dl Total Bilirubin 1.2 1.3 0.2-1 mg/dl Aspartate Amino Transf (AST/SGOT) 300 396 15-37 U/L Alanine Aminotransferase (ALT/SGPT) 432 514 12-78 U/L Alkaline Phosphatase 578 584 45-117 U/L Total Creatine Kinase 137 26-192 U/L Creatine Kinase MB 1.1 0.5-3.6 ng/ml Creatine Kinase MB Ratio 0.8 0-3.0 Total Protein 8.0 7.5 6.4-8.2 gm/dl Albumin 3.5 3.2 3.4-5.0 gm/dl Globulin 4.5 2.5-4.0 gm/dl Albumin/Globulin Ratio 0.8 0.9-2 Lipase 186 73-393 U/L Direct Bilirubin 1.0 0-0.2 mg/dl Microbiology Results 06/14/16 Urine Culture, Received Pending Assessment and Plan 56 yo female presents with epigastric pain s/p lap melissa. Concern for choledocholithiasis. Elevated LFTs and dilated CBD; concern for choledocholithiasis - GI consult - ERCP vs. MRCP - Keep NPO expect meds for possible ERCP - will continue cipro and metronidazole currently to cover for cholangitis given previous fever/chills. - surgery consulted and following. s/p Choledocholithiasis on 06/08. [place] - contact dermatitis most likely - Benadryl PRN - benadryl cream bid HTN - Continue losartan, amlodipine Hyperlipidemia - continue atorvastatin Pre-diabetes - meformin held - bsg ac hs VTE Prophylaxis - SCDs - TEDs - If decision is made there will be no procedures done will restart lovenox Code - Full Disposition - admit to med/surg Continued [facility] stay due to: other Discharge planning: uncertain Reviewed: Pt Seen/Exam by Me History 56 y/o F here with epigastric pain. s/p lap melissa on 06/08. noted to have elevated LFT in ED pain resolved this am Constitutional: denies: fever Respiratory: negative: short of breath Gastrointestinal/Abdominal: negative: abdominal pain General Appearance: no apparent distress Respiratory: lungs clear, no respiratory distress Cardiovascular: regular rate, rhythm Gastrointestinal: normal bowel sounds, non tender, soft Neurologic/Psychiatric: alert, oriented x 3 Assessment/Plan I have reviewed the medical record and performed a history and physical examination of this patient today. I have discussed the case with Dr. Styles. The above note reflects my findings, conclusions, and recommendations.
[2016-06-14] MEDS: METRONIDAZOLE / NSS 500 MG in PREMIXED NSS 100 ML IV SCH (13:40)
--- NOTE | 2016-06-14 13:54 | Gastroenterology Progress Note ---
Progress Note Date of Service: Jun 14, 2016 Subjective Pt evaluation today including: conversation w/ patient, conversation w/ family (), physical exam, chart review, lab review, review of studies, review of inpatient medication list Medications Current Inpatient Medications Medications (Trade) Dose Ordered Sig/[place] Route Start Time Stop Time Status Last Admin Dose Admin Ioversol (Optiray 320) 100 ml UD PRN IV 06/14/16 02:15 06/18/16 02:14 Acetaminophen (Tylenol Tab) 650 mg Q4H PRN PO 06/14/16 05:00 07/14/16 04:59 Amlodipine Besylate (Norvasc Tab) 10 mg QPM PO 06/14/16 21:00 07/14/16 20:59 Atorvastatin Calcium (Lipitor Tab) 40 mg HS PO 06/14/16 21:00 07/14/16 20:59 Cholecalciferol (Vitamin D Tab) 1,000 inter.unit QAM PO 06/14/16 09:00 07/14/16 08:59 06/14/16 09:19 1,000 INTER.UNIT Losartan Potassium (coZAAR TAB) 50 mg QAM PO 06/14/16 09:00 07/14/16 08:59 06/14/16 09:24 50 MG Magnesium Oxide 400 mg 400 mg HS PO 06/14/16 21:00 07/14/16 20:59 Potassium Chloride/Sodium Chloride 1,000 ml @ 150 mls/hr Q6H40M IV 06/14/16 06:30 07/14/16 06:29 06/14/16 13:21 150 MLS/HR Ciprofloxacin/ Dextrose 400 mg/ Prmx 200 ml @ 100 mls/hr Q12 IV 06/14/16 21:00 06/24/16 20:59 Metronidazole/Prmx (Flagyl / Nss/ Premixed Nss) 100 ml @ 100 mls/hr Q8 IV 06/14/16 14:00 06/24/16 13:59 06/14/16 13:40 100 MLS/HR Diphenhydramine HCl (Benadryl Extra Strength Cream) 1 appln UD EXT 06/14/16 08:15 07/14/16 08:14 06/14/16 09:50 1 APPLN Objective Vital Signs Date Time Temp Pulse Resp B/P Pulse Ox O2 Delivery O2 Flow Rate FiO2 06/14/16 12:17 37.1 73 17 152/89 94 Room Air 06/14/16 09:21 75 158/98 06/14/16 09:06 97 Room Air 06/14/16 08:28 37.0 79 20 136/86 97 Room Air 06/14/16 08:05 97 Room Air 06/14/16 06:06 36.4 16 177/104 Room Air 06/14/16 05:15 37.0 79 18 170/100 97 Room Air 06/14/16 05:11 73 16 177/104 96 Room Air 06/14/16 04:30 73 06/14/16 04:03 72 16 183/102 97 06/14/16 02:30 84 16 183/99 97 Room Air 06/14/16 01:23 68 16 157/98 98 Room Air 06/14/16 00:42 99 Room Air 06/14/16 00:42 Room Air 06/14/16 00:38 69 06/14/16 00:24 36.4 75 20 143/89 98 Room Air Laboratory Results Last 24 Hours Test 06/14/16 00:25 06/14/16 00:31 06/14/16 00:54 06/14/16 06:24 Urine Color DK YELLOW Urine Appearance CLOUDY Urine pH 5.5 Urine Specific [place] 1.032 Urine Protein TRACE Urine Glucose (UA) NEG Urine Ketones TRACE Urine Occult Blood NEG Urine Nitrite POS Urine Bilirubin 1+ Urine Urobilinogen POS Urine Leukocyte Esterase TRACE Urine WBC (Auto) 1-5 /hpf Urine RBC (Auto) 5-10 /hpf Urine Hyaline Casts (Auto) 1-5 /lpf Urine Epithelial Cells (Auto) >30 /lpf Urine Bacteria (Auto) 1+ Urine Renal Epithelial Cells /lpf Urine Pathogenic Casts /lpf Urine Mucus PRESENT White Blood Count 10.03 K/uL 8.02 K/uL Red Blood Count 4.67 M/uL 4.28 M/uL Hemoglobin 13.7 g/dL 12.2 g/dL Hematocrit 40.6 % 37.2 % Mean Corpuscular Volume 86.9 fL 86.9 fL Mean Corpuscular Hemoglobin 29.3 pg 28.5 pg Mean Corpuscular Hemoglobin Concent 33.7 g/dl 32.8 g/dl Platelet Count 371 K/uL 333 K/uL Mean Platelet Volume 9.3 fL 8.8 fL Neutrophils (%) (Auto) 60.1 % 67.8 % Lymphocytes (%) (Auto) 22.4 % 23.3 % Monocytes (%) (Auto) 8.0 % 4.1 % Eosinophils (%) (Auto) 8.5 % 3.9 % Basophils (%) (Auto) 0.5 % 0.4 % Neutrophils # (Auto) 6.03 K/uL 5.44 K/uL Lymphocytes # (Auto) 2.25 K/uL 1.87 K/uL Monocytes # (Auto) 0.80 K/uL 0.33 K/uL Eosinophils # (Auto) 0.85 K/uL 0.31 K/uL Basophils # (Auto) 0.05 K/uL 0.03 K/uL RDW Standard Deviation 49.1 fL 49.1 fL RDW Coefficient of Variation 15.3 % 15.3 % Immature Granulocyte % (Auto) 0.5 % 0.5 % Immature Granulocyte # (Auto) 0.05 K/uL 0.04 K/uL Prothrombin Time 10.4 SECONDS Prothromb Time International Ratio 1.0 Activated Partial Thromboplast Time 26.2 SECONDS Partial Thromboplastin Ratio 1.0 Sodium Level 145 mmol/L 144 mmol/L Potassium Level 3.8 mmol/L 4.0 mmol/L Chloride Level 106 mmol/L 107 mmol/L Carbon Dioxide Level 27 mmol/L 26 mmol/L Anion Gap 12.0 mmol/L 11.0 mmol/L Blood Urea Nitrogen 16 mg/dl 13 mg/dl Creatinine 0.80 mg/dl 0.78 mg/dl Est Creatinine Clear Calc Drug Dose 112.8 ml/min 114.6 ml/min Estimated GFR () 95.5 98.5 Estimated GFR (Non- 82.4 85.0 BUN/Creatinine Ratio 20.4 17.2 Random Glucose 159 mg/dl 183 mg/dl Calcium Level 9.2 mg/dl 9.0 mg/dl Magnesium Level 2.2 mg/dl Total Bilirubin 1.2 mg/dl 1.3 mg/dl Aspartate Amino Transf (AST/SGOT) 300 U/L 396 U/L Alanine Aminotransferase (ALT/SGPT) 432 U/L 514 U/L Alkaline Phosphatase 578 U/L 584 U/L Total Creatine Kinase 137 U/L Creatine Kinase MB 1.1 ng/ml Creatine Kinase MB Ratio 0.8 Total Protein 8.0 gm/dl 7.5 gm/dl Albumin 3.5 gm/dl 3.2 gm/dl Globulin 4.5 gm/dl Albumin/Globulin Ratio 0.8 Lipase 186 U/L Bedside D-Dimer > 450 ng/mlFEU Bedside Troponin I 0.000 ng/ml Direct Bilirubin 1.0 mg/dl Test 06/14/16 09:45 Urine Color DK YELLOW Urine Appearance CLOUDY Urine pH 6.0 Urine Specific [place] 1.028 Urine Protein NEG Urine Glucose (UA) NEG Urine Ketones NEG Urine Occult Blood NEG Urine Nitrite NEG Urine Bilirubin 1+ Urine Urobilinogen POS Urine Leukocyte Esterase NEG Urine WBC (Auto) 1-5 /hpf Urine RBC (Auto) 0-4 /hpf Urine Hyaline Casts (Auto) 1-5 /lpf Urine Epithelial Cells (Auto) >30 /lpf Urine Bacteria (Auto) 2+ Assessment and Plan Gi Consult dictated. Job [id number] elevated LFTS--first noted 06/01/16, differential includes sludge or stones in bile duct, medication although only new med was omeprazole a few days prior to first labs, hepatitis of some type. Discussed recommend MRCP to start because non invasive way or looking at bile duct vs ERCP (ERCP risks discussed include medication reaction, bleeding, perforation, aspiration, infection, and pancreattiis. Stated pancreatitis can occurr in 10% of patients and be severe and life threatening). Pt is aware of pancreatitis risk because of who had post ERCP pancreatitis and was in hospital 12 days after. Check acute hepatitis panel also. epigastric pain--none at present--could be related to CBD sludge or stones ball valving or passed--MRCP as above. rash--seems localized to abdomen so perhaps from topical sterilizing agent or other contact at time of OR diverticulosis--likley unrelated to problems above adrenal nodule--per hospitalist
--- NOTE | 2016-06-14 17:49 | GASTROINTESTINAL CONSULTATION ---
DATE OF CONSULTATION: 06/14/2016 REASON FOR CONSULTATION: Questionable retained stones. REQUESTING PHYSICIAN: Dr. Ifeanyi Marin. HISTORY OF PRESENT ILLNESS: Outpt and inpt records reviewed. The patient states back in the fall, she first had some nausea on a couple of occasions and basically in April, the nausea became worse, associated with epigastric pain sometimes going into the shoulder blades, some bloating. She was given a trial of PPI, but shortly after that had what seemed like a Gallbladder attack. She ultimately on 06/01/2016 had an ultrasound showing fatty liver with focal sparing, multiple stones and sludge in the gallbladder, common bile duct 9 mm, and a 32 mm adrenal lesion. LFTs done on 06/01/2016: Alk phos 420, AST 84, ALT 357, and total bilirubin was normal. The patient was sent to the surgeon, Dr. Olson, who did a lap melissa as same-day surgery, 06/08/2016. I looked at the report, there was no intraoperative cholangiogram done at that time. The patient still had some epigastric pain after gallbladder removal but milder. She also developed a rash. She said she was sent home on antibiotics. The patient then had a severe attack of pain up to 8/10 in the lower chest and epigastric area last night She came into the Emergency Room and it resolved by 0300 this morning. She has had no bloody stools. No black stools. No change in her weight. She has had some low grade fevers on and off since surgery, 99-101. Other than nausea from before, she has no nausea and no vomiting currently. She had gastroesophageal reflux symptoms about 20 years ago and no liver disease, some anorexia recently. PAST MEDICAL HISTORY: ALLERGIES: None. MEDICATIONS ON ADMISSION: Amlodipine, Lipitor, vitamin D, CoQ10, Cozaar, mag oxide, metformin. She had been on antibiotic, not sure which. PROBLEMS AND SURGERY: Hypertension, hysterectomy, diabetes. She is status post cholecystectomy. FAMILY HISTORY: Negative for colorectal cancer. SOCIAL HISTORY: Tobacco negative, ethanol occasionally. REVIEW OF SYSTEMS: CONSTITUTIONAL: Negative. EYES: Negative. EARS, NOSE, MOUTH, AND THROAT: Negative. CARDIOVASCULAR: Negative. RESPIRATORY: Negative. GENITOURINARY: Negative. MUSCULOSKELETAL: Arthritis. INTEGUMENTARY: Rash in her abdomen. NEUROLOGIC, PSYCH, ENDOCRINE AND HEMATOLOGIC: Negative except as noted above. PHYSICAL EXAMINATION: GENERAL: Female, appears stated age, in no acute distress. VITAL SIGNS: The most recent vital signs in the chart: Temp 37.1, pulse 73, respirations 17, BP 152/89 and O2 saturation 94% on room air. EYES: Conjunctivae and lids normal. ENT: Oropharynx clear. NECK: Without obvious mass or thyroid enlargement. RESPIRATORY: Normal effort, clear to anterior auscultation. CARDIOVASCULAR: Regular rate and rhythm. EXTREMITIES: Without edema. ABDOMEN: Positive bowel sounds, soft, nontender, no obvious organomegaly or masses are appreciated. LYMPH: No obvious neck or groin nodes. MUSCULOSKELETAL: Digits and nails normal. SKIN: Rash noted on her abdomen. NEUROLOGIC: Cranial nerves intact. Sensation intact. PSYCHIATRIC: Recent and remote memory good. Insight and judgment good. DATA: On admission, chest x-ray negative. CT angiogram of the chest negative. CT abdomen and pelvis: Fatty liver, diverticulosis, and 35 mm adrenal nodule. The LFTs on admission: Total bili 1.2 went up to 1.3, AST 300 went to 396, ALT 432 went to 514, alk phos 578 went to 584. The patient states that she had a colonoscopy greater than 20 years ago and I do not have that report. IMPRESSION AND PLAN: 1. Elevated liver function tests. I think the first on my list in the differential would be stones or sludge in the bile duct. Another possibility is medication although the medication was omeprazole a few days prior to the first elevated LFTs. Hepatitis of some type can also cause this. I discussed with patient and her regarding doing an MRCP to start because it is noninvasive way of looking in the bile duct versus an ERCP. I did explain the ERCP risks which include but are not limited to medication reaction, bleeding, perforation, aspiration, infection, pancreatitis. I did explain that pancreatitis can occur in up to 10% of patients and can be severe and life threatening. The patient is aware of pancreatitis risk because who had post ERCP pancreatitis was in the hospital several days after that. I am going to check acute hepatitis panel also. 2. Epigastric pain, resolved at present, could be related to common bile duct sludge or stone, evolving or passed. MRCP as above. 3. Rash seems to localize in the abdomen or perhaps from topical sterilizing agent or other contact at the time of OR. 4. Diverticulosis, likely unrelated to problems above. 5. Adrenal nodule per hospitalist. MTDD
[2016-06-14] MEDS: CIPROFLOXACIN / D5W 400 MG in PREMIXED IN D5W 200 ML IV SCH (20:43)
[2016-06-14] MEDS ORDERED: AMLODIPINE BESYLATE 5 MG TAB PO SCH (21:00)
[2016-06-14] MEDS ORDERED: MAGNESIUM OXIDE 400 MG TAB PO SCH (21:00)
[2016-06-14] MEDS ORDERED: ATORVASTATIN 40 MG TAB PO SCH (21:00)
--- NOTE | 2016-06-14 23:03 | DIAGNOSTIC IMAGING REPORT ---
MRCP CLINICAL HISTORY: Elevated hepatic transaminases. Recent cholecystectomy. COMPARISON STUDY: Abdominal CT dated 06/14/2016 and abdominal ultrasound dated 06/01/2016. TECHNIQUE: Abdominal MRCP is performed using various T2-weighted sequences in the axial and coronal planes. IV contrast was not administered for this examination. 3-D reformats are created and assessed. FINDINGS: The gallbladder surgically absent. Nonspecific stranding and trace fluid in the gallbladder fossa are likely on a postoperative basis. There is minimal central intrahepatic biliary ductal dilatation. The common bile duct is normal in caliber measuring up to 5 mm. There is no evidence of choledocholithiasis. The pancreatic duct is normal in caliber. The hepatic parenchyma is normal as imaged. There is trace perihepatic fluid. The spleen, pancreas, left adrenal gland, and kidneys are grossly unremarkable. A 3.6 cm right adrenal nodule is again noted. There is no upper abdominal lymphadenopathy. No bowel obstruction is seen. No pleural effusion is identified. IMPRESSION: 1. The gallbladder is surgically absent. Mild stranding and trace fluid in the gallbladder fossa are likely related to recent surgery. 2. There is minimal central intrahepatic or ductal dilatation. The common bile duct is normal in caliber and there is no evidence of choledocholithiasis. 3. Trace perihepatic fluid is incidentally noted. 4. A 3.6 cm indeterminant right adrenal nodule is again identified. Electronically signed by: Jimmy Anne M.D. 06/14/2016 11:02 PM Dictated Date/Time: 06/14/2016 10:44 PM
[2016-06-15] MEDS: METRONIDAZOLE / NSS 500 MG in PREMIXED NSS 100 ML IV SCH ×3 (00:05→14:21)
[2016-06-15] MEDS: NSS + 20MEQ KCL 1000ML 1,000 ML IV SCH ×3 (04:49→16:07)
[2016-06-15 07:28] LABS: BASO % 0.6 %; BASO ABS # 0.05 K/uL (0-0.2); COMPLETE YES; EOS % 10.5 %; IG% 0.5 %; LYMPH % 22.4 %; LYMPH ABS # 1.88 K/uL (1.2-3.4); MEAN CELL VOLUME 84.9 fL (80-100); MEAN CORPUSCULAR HEMOGLOBIN 28.2 pg (25-34); MEAN CORPUSCULAR HGB CONC 33.2 g/dl (32-36); MEAN PLATELET VOLUME 8.7 fL (7.4-10.4); PLATELET COUNT 338 K/uL (130-400); RED BLOOD COUNT 4.36 M/uL (4.2-5.4); WHITE BLOOD COUNT 8.38 K/uL (4.8-10.8)
[2016-06-15 07:40] VITALS: O2SAT 94
--- NOTE | 2016-06-15 07:51 | Surgery Progress Note ---
Surgery Progress Note Date of Service Jun 15, 2016. Subjective pain is gone, MRCP did not show any significant defect in CBD labs pending Objective Vital Signs: Date Time Temp Pulse Resp B/P Pulse Ox O2 Delivery O2 Flow Rate FiO2 06/14/16 23:15 Room Air 06/14/16 23:12 37.0 79 17 142/79 96 Room Air 06/14/16 16:05 Room Air 06/14/16 15:05 36.9 78 18 156/88 93 Room Air 06/14/16 12:17 37.1 73 17 152/88 94 Room Air 06/14/16 09:21 75 158/98 06/14/16 09:06 97 Room Air 06/14/16 08:28 37.0 79 20 136/86 97 Room Air 06/14/16 08:05 97 Room Air General Appearance: no apparent distress Respiratory/Chest: no respiratory distress Abdomen: non tender, soft Incision(s): intact Laboratory Results: Results Past 24 Hours Test 06/14/16 09:45 06/14/16 23:55 06/15/16 07:08 Range/Units Urine Color DK YELLOW Urine Appearance CLOUDY CLEAR Urine pH 6.0 4.5-7.5 Urine Specific [place] 1.028 1.000-1.030 Urine Protein NEG NEG Urine Glucose (UA) NEG NEG Urine Ketones NEG NEG Urine Occult Blood NEG NEG Urine Nitrite NEG NEG Urine Bilirubin 1+ NEG Urine Urobilinogen POS NEG Urine Leukocyte Esterase NEG NEG Urine WBC (Auto) 1-5 0-5 /hpf Urine RBC (Auto) 0-4 0-4 /hpf Urine Hyaline Casts (Auto) 1-5 0-5 /lpf Urine Epithelial Cells (Auto) >30 0-5 /lpf Urine Bacteria (Auto) 2+ NEG Cortisol PM Sample 21.76 3.10-16.60 mcg/dl White Blood Count 8.38 4.8-10.8 K/uL Red Blood Count 4.36 4.2-5.4 M/uL Hemoglobin 12.3 12.0-16.0 g/dL Hematocrit 37.0 37-47 % Mean Corpuscular Volume 84.9 80-100 fL Mean Corpuscular Hemoglobin 28.2 25-34 pg Mean Corpuscular Hemoglobin Concent 33.2 32-36 g/dl Platelet Count 338 130-400 K/uL Mean Platelet Volume 8.7 7.4-10.4 fL Neutrophils (%) (Auto) 60.0 % Lymphocytes (%) (Auto) 22.4 % Monocytes (%) (Auto) 6.0 % Eosinophils (%) (Auto) 10.5 % Basophils (%) (Auto) 0.6 % Neutrophils # (Auto) 5.03 1.4-6.5 K/uL Lymphocytes # (Auto) 1.88 1.2-3.4 K/uL Monocytes # (Auto) 0.50 0.11-0.59 K/uL Eosinophils # (Auto) 0.88 0-0.5 K/uL Basophils # (Auto) 0.05 0-0.2 K/uL RDW Standard Deviation 47.9 36.4-46.3 fL RDW Coefficient of Variation 15.4 11.5-14.5 % Immature Granulocyte % (Auto) 0.5 % Immature Granulocyte # (Auto) 0.04 0.00-0.02 K/uL Assessment & Plan 06/15/16- May have passed stone, sludge from CBD- much improved check labs- may be able to avoid ERCP .
[2016-06-15 07:52] LABS: BUN/CREATININE RATIO 16.7 (10-20); CALCIUM 8.8 mg/dl (8.5-10.1); CREATININE 0.67 mg/dl (0.60-1.20); POTASSIUM 3.7 mmol/L (3.5-5.1)
[2016-06-15 07:55] LABS: ALB/GLOB RATIO 0.7 (0.9-2)
[2016-06-15 08:24] VITALS: BP 150/84; PULSE 72; TEMP 36.6; O2SAT 94
[2016-06-15] MEDS: CIPROFLOXACIN / D5W 400 MG in PREMIXED IN D5W 200 ML IV SCH (08:52)
[2016-06-15] MEDS: LOSARTAN POTASSIUM 50 MG TAB PO SCH (08:54)
[2016-06-15] MEDS: CHOLECALCIFEROL 1000 INTER.UNIT TAB PO SCH (08:54)
[2016-06-15 15:12] VITALS: BP 154/91; PULSE 73; TEMP 36.8; O2SAT 96
--- NOTE | 2016-06-15 15:46 | Discharge Instructions ---
Discharge Instructions Date of Service Jun 15, 2016. Admission Reason for Admission: Elevated Transaminase Level, S/P Cholecystectomy, Discharge Discharge Diagnosis / Problem: epigastric pain Discharge Goals Goal(s): Diagnostic testing Activity Recommendations Activity Limitations: resume your previous activity Lifting Limitations: none Exercise/Sports Limitations: as tolerated May Resume Sexual Activity: when tolerated Shower/Bathe: no limitations . Instructions / Follow-Up Instructions / Follow-Up As you know you were admitted to the hospital because of your abdominal pain. When you were evaluated in the emergency room you were found to have an elevation in your liver enzymes and imaging reflected a potential stone in your bile duct. We did further imaging with an MRCP and no stone was found but we are suspicious that the you may have passed the stone by yourself. We also found a small nodule you your adrenal gland which could be something called an incidentaloma. Based on size and characteristic we are not concerned that it is malignant in nature at this time. We do however recommend further outpatient work up with your PCP to assess if it is "hormonally active" like we discussed. This is not an emergent testing and can be done during your arranged visit with Dr Fermin. 1. Continue to advance your diet as tolerated 2. Follow up with Dr Olson and Dr Fermin as arranged 3. We will arrange follow up with Dr Walker for reassessment of the liver enzymes Current Hospital Diet Patient's current hospital diet: Low Sodium Diet (2gm Na), AHA Diet (Heart Healthy) Discharge Diet Recommended Diet: AHA Diet (Heart Healthy), Low Sodium Diet (2gm Na) Pending Studies Studies pending at discharge: no Laboratory Results Results Past 24 Hours Test 06/14/16 23:55 06/15/16 07:08 Range/Units Random Cortisol 21.76 mcg/dl White Blood Count 8.38 4.8-10.8 K/uL Red Blood Count 4.36 4.2-5.4 M/uL Hemoglobin 12.3 12.0-16.0 g/dL Hematocrit 37.0 37-47 % Mean Corpuscular Volume 84.9 80-100 fL Mean Corpuscular Hemoglobin 28.2 25-34 pg Mean Corpuscular Hemoglobin Concent 33.2 32-36 g/dl Platelet Count 338 130-400 K/uL Mean Platelet Volume 8.7 7.4-10.4 fL Neutrophils (%) (Auto) 60.0 % Lymphocytes (%) (Auto) 22.4 % Monocytes (%) (Auto) 6.0 % Eosinophils (%) (Auto) 10.5 % Basophils (%) (Auto) 0.6 % Neutrophils # (Auto) 5.03 1.4-6.5 K/uL Lymphocytes # (Auto) 1.88 1.2-3.4 K/uL Monocytes # (Auto) 0.50 0.11-0.59 K/uL Eosinophils # (Auto) 0.88 0-0.5 K/uL Basophils # (Auto) 0.05 0-0.2 K/uL RDW Standard Deviation 47.9 36.4-46.3 fL RDW Coefficient of Variation 15.4 11.5-14.5 % Immature Granulocyte % (Auto) 0.5 % Immature Granulocyte # (Auto) 0.04 0.00-0.02 K/uL Sodium Level 143 136-145 mmol/L Potassium Level 3.7 3.5-5.1 mmol/L Chloride Level 109 98-107 mmol/L Carbon Dioxide Level 23 21-32 mmol/L Anion Gap 11.0 3-11 mmol/L Blood Urea Nitrogen 11 7-18 mg/dl Creatinine 0.67 0.60-1.20 mg/dl Est Creatinine Clear Calc Drug Dose 133.4 ml/min Estimated GFR () 113.9 Estimated GFR (Non- 98.3 BUN/Creatinine Ratio 16.7 10-20 Random Glucose 137 70-99 mg/dl Calcium Level 8.8 8.5-10.1 mg/dl Total Bilirubin 1.0 0.2-1 mg/dl Aspartate Amino Transf (AST/SGOT) 255 15-37 U/L Alanine Aminotransferase (ALT/SGPT) 510 12-78 U/L Alkaline Phosphatase 618 45-117 U/L Total Protein 7.4 6.4-8.2 gm/dl Albumin 3.1 3.4-5.0 gm/dl Globulin 4.3 2.5-4.0 gm/dl Albumin/Globulin Ratio 0.7 0.9-2 Cortisol AM Sample 24.96 4.30-22.40 mcg/dl Hepatitis B Surface Antigen NEG NEG Hepatitis C Antibody NEG NEG Medical Emergencies . Who to Call and When: Medical Emergencies: If at any time you feel your situation is an emergency, please call 911 immediately. . Non-Emergent Contact Non-Emergency issues call your: Primary Care Provider Call Non-Emergent contact if: you have a fever, your pain is not controlled, your pain is worsening, your pain is unusual for you . . "Provider Documentation" section prepared by Coco Styles. VTE Core Measure Inpt VTE Proph given/why not?: SCD's
--- NOTE | 2016-06-15 16:13 | Discharge Summary ---
Discharge Summary Date of Service Jun 15, 2016. (Coco Styles MD) Discharge Summary Admission Date: Jun 14, 2016 at 05:00 Discharge Date: Jun 15, 2016 Discharge Disposition: Home Principal Diagnosis: elevated LFT Immunizations: Have You Had Influenza Vaccine: No History of Tetanus Vaccine?: No History of Pneumococcal: No History of Hepatitis B Vaccine: No Procedures: MRCP Consultations: Dr Aaron CLINE (Coco Styles MD) Medication Reconciliation Continued Medications: Amlodipine (Norvasc) 10 Mg Tab 10 MG PO QPM, TAB Atorvastatin (Lipitor) 40 Mg Tab 40 MG PO HS, TAB Cholecalciferol (Vitamin D3) 1,000 Unit Tab 1000 UNIT PO QAM, 3 Refills Coenzyme Q10 (Ubidecarenone) (Co Q-10) 75 Mg Cap 1 CAP PO NOON, CAP Losartan Potassium (Cozaar) 50 Mg Tab 50 MG PO QAM, TAB Magnesium Oxide (Mag-Ox) 400 Mg Tab 400 MG PO HS, TAB Metformin HCl (Metformin HCl) 500 Mg Tab 500 MG PO DAILY Discharge Exam Patient states her pain has completely resolved Tolerating PO questions and concerns answered prior to d/c and patient was agreeable Review of Systems: Constitutional: No fever Eyes: No worsening of vision ENT: No hearing loss Respiratory: No cough, No dyspnea at rest, No dyspnea on exertion, No shortness of breath, No sputum, No wheezing Cardiovascular: No chest pain Abdomen: No constipation, No diarrhea, No nausea, No pain, No vomiting Musculoskeletal: No joint pain, No muscle pain Genitourinary - Female: No dysuria, No hematuria Neurologic: No balance problems, No numbness/tingling, No weakness Psychiatric: No depression symptoms Endocrine: No fatigue Integumentary: No rash Physical Exam: General Appearance: WD/WN, no apparent distress, + obese Eyes: normal inspection ENT: normal ENT inspection Neck: supple Respiratory/Chest: lungs clear, normal breath sounds, no respiratory distress, no accessory muscle use Cardiovascular: regular rate, rhythm, no murmur Abdomen / GI: normal bowel sounds, non tender, soft Extremities: no calf tenderness, no pedal edema Neurologic/Psychiatric: alert, normal mood/affect, oriented x 3 Skin: normal color, warm/dry, + pertinent finding (improving maculopapular rash) Lymphatic: no adenopathy (Coco Styles MD) Review of Systems: Constitutional: No fever Respiratory: No shortness of breath Cardiovascular: No chest pain Abdomen: No nausea, No pain, No vomiting Physical Exam: General Appearance: no apparent distress Respiratory/Chest: lungs clear, no respiratory distress Cardiovascular: regular rate, rhythm Abdomen / GI: normal bowel sounds, non tender, soft Neurologic/Psychiatric: alert, oriented x 3 Skin: warm/dry (Sandra Cid M.D.) Hospital Course Patient was admitted to the hospital s/p cholecystectomy (06/08) because of acute onset epigastric pain similar to her "gallbladder" episodes. She was found to have elevated LFT concerning for a retained stone. a CT did reveal a dilated CBD which also reflected similar concerns. Gi was consulted and an MRCP was ordered. there was no stone noted so thoughts were that the patient passed the stone alone. the LFT was improving on d/c but GI would like to follow to confirm that it resolved. 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 It was 3.5 cm in diameter and she did not have "red flag symptoms" so no further inpatient testing was done as minimal concern for metastatic disease. However, because of her elevated bp it would be appropriate to r/o a hormonally active nodule. An AM cortisol was mildly elevated- recent stress could have but because of the incidentaloma consider low dose dexa. Also she is on an ARB, could manipulate an aldosteone : renin ratio so this testing was deferred to outpt. 1. Follow up with Gi as arranged 2. Follow up with Dr Olson and Dr pearson 3. Consider ongoing w/u for hormonally active mass- ARR and low dose dex 4. follow up LFT in 1-2 weeks Total Time Spent: Less than 30 minutes This includes examination of the patient, discharge planning, medication reconciliation, and communication with other providers. (Coco Styles MD) I have reviewed the medical record and performed a history and physical examination of this patient today. I have discussed the case with Dr. Styles. The above note reflects my findings, conclusions, and recommendations. Total Time Spent: Greater than 30 minutes (Sandra Cid M.D.) Discharge Instructions Please refer to the electronic Patient Visit Report (Discharge Instructions) for additional information. (Coco Styles MD) Additional Copies To Leigh Pearson M.D.
--- NOTE | 2016-06-15 17:25 | GASTROENTEROLOGY PROGRESS NOTE ---
DATE: 06/15/2016 GASTROENTEROLOGY INPATIENT PROGRESS NOTE SUBJECTIVE: The patient is feeling well, resting comfortably in bed, accompanied by her in the room. The patient is status post cholecystectomy last week and developed abdominal pain. At that time, the patient was placed on antibiotics including Flagyl and Cipro. The patient has not had her diet advanced as of yet. LABORATORY STUDIES: Currently include a hepatitis B surface antigen negative, hepatitis C antibody negative, core IgM and hepatitis A IgM are pending. The serum chemistries show some partial resolution of liver function test. Bilirubin today is down to 1.0 without a direct value. AST is down to 255 from 396, ALT 510 from 514 yesterday and alkaline phosphatase has increased to 618 from 584. Total bilirubin was higher on admission at 1.2 as were the transaminases which are better. IMAGING STUDY: Shows an MRCP that showed no evidence for extrahepatic bile duct dilation or filling defects. There is a normal appearing hepatic parenchyma. There is minimal central intrahepatic ductal dilation. MEDICATIONS: Reviewed. These include Cipro and Flagyl. ALLERGIES: No known drug allergies. PHYSICAL EXAMINATION: VITAL SIGNS: Today - blood pressure is 154/91, respirations 17, temperature 36.8, 93% on room air. GENERAL: The patient is awake, alert and oriented. HEENT: Sclerae are anicteric. ABDOMEN: Soft with ecchymosis around the trocar incision sites from her recent laparoscopic cholecystectomy. There is no rebound or guarding. I do not appreciate hepatosplenomegaly. On the skin across the mid abdomen beneath the breast, here is a maculopapular nonpruritic rash. The patient believes this has been present since around the time following her surgery and is in the distribution that may be from contact dermatitis. EXTREMITIES: Without edema. IMPRESSION: The patient with abnormal liver tests of uncertain etiology. Historically, the patient has been on atorvastatin and I do not have outpatient labs available for review. She describes that preoperative labs were obtained by Dr. Fermin at [facility] and I will need to get to the [facility] computer to see what her lab numbers have been tracking. She was on an antibiotic for a reported UTI with E. coli, but I am not sure which agent was used and precisely when this was used relative to her liver test abnormalities. This may be a possible culprit in these liver tests. However, they also may be unrelated to this medication and represent a different cholestatic process or some perioperative drug impact. There is no evidence to suggest a biliary mechanical obstruction by either stones or strictures. The patient has laboratory studies pending including hepatitis B surface antigen is negative, hepatitis C antibody is negative, core IgM and hepatitis A IgM are pending. At some point if LFTs do not resolve, then it may be prudent for the patient to have other chronic metabolic liver markers such as ZACH, AMA, smooth muscle antibody, and serum protein electrophoresis. She is on atorvastatin and these numbers at the present time are approximately 3-4 times the normal range and this may need to be discontinued or at least held until they have resolved. Further recommendations to follow. At the present time, I do not see an indication for an ERCP; however, if her LFTs change, bilirubin were to rise or the patient develop right-sided abdominal pain consistent with biliary obstruction, then an ERCP would be recommended. All questions answered for the patient and her . LFTs should be monitored as an outpatient as well until they have normalized or reached baseline. In addition, if the rash persists and is not felt to be related to the current antibiotics then a dermatology evaluation may be helpful. This does not have the typical appearance of the yeast, but certainly topical application of clotrimazole cream may be reasonable. In the absence of any obvious infection, would consider discontinuing antibiotics as there has been no leukocytosis or fever demonstrated during this admission.
[2016-06-15 17:51] VITALS: BP 154/91; PULSE 73; TEMP 36.8; O2SAT 96
--- NOTE | 2016-06-21 09:19 | EDITING REQUIRED CODING QUERY ---
CODING QUERY To promote full compliance with coding requirements relating to patient care, provider participation is requested in all cases of rhinologist uncertainty. Please assist us with the question(s) below: Coding Question(s): Patient status post cholecystectomy presents with epigastric and chest pain. Please document the etiology of the epigastric/chest pain if suspected or known. Thanks for your help! Kp Contreras [facility] Physician's Response(s): possible sludge in CBD which may have passed by the time of MRCP Principal Diagnosis: "_that condition established after study, to be chiefly responsible for occasioning the admission of the patient to the hospital for care." Co-Existing Principal Diagnosis: "_when two or more diagnoses equally meet the criteria for principal diagnosis as determined by the circumstances of admission, diagnostic work up, and/or therapy provided, and the Alphabetic Index, Tabular List, or another coding guideline does not provide sequencing direction, any one of the diagnoses may be sequenced first." "When the physician has documented what appears to be a current diagnosis in the body of the record, but has not included the diagnosis in the final diagnostic statement, the physician should be asked whether the diagnosis should be added." (Source Coding [facility] 2 QTR90. p3-4)
== END 2016-06-15 18:57 | disposition home or self-care (01) | DRG 445 ==
LOC: ENRESERVDT → ENRESERVTM → C.EDB 00:21 → C.MSW 05:00
PROVIDERS: ADMIT Internal Medicine; ATTEND Family Medicine
DX: K80.50 Calculus of bile duct without cholangitis or cholecystitis without obstruction (principal); K21.9 Gastro-esophageal reflux disease without esophagitis; R74.0 Nonspecific elevation of levels of transaminase and lactic acid dehydrogenase [LDH]; N39.0 Urinary tract infection, site not specified; K83.0 Cholangitis; I10 Essential (primary) hypertension; K76.0 Fatty (change of) liver, not elsewhere classified; N20.0 Calculus of kidney; E78.5 Hyperlipidemia, unspecified; K75.9 Inflammatory liver disease, unspecified; L25.9 Unspecified contact dermatitis, unspecified cause; Z98.890 Other specified postprocedural states

== ENCOUNTER → 2016-08-05 | Outpatient (CLI) | payer BC ==
[~2016-08-05] MED LIST changes: -HYDR-5688 PO
--- NOTE | 2016-08-05 09:27 | DIAGNOSTIC IMAGING REPORT ---
DOUBLE CONTRAST UPPER GI SERIES CLINICAL HISTORY: Generalized abdominal pain. COMPARISON STUDY: Abdominal CT dated 06/14/2016. TECHNIQUE: A standard air contrast upper GI series was performed. Spot images of the esophagus and stomach were obtained in multiple obliquities both upright and prone. FINDINGS: The patient swallowed barium without difficulty. The esophagus is structurally normal without evidence of intrinsic or extrinsic mass. The esophageal mucosal pattern is normal. No gastroesophageal reflux was elicited by having the patient perform the Valsalva maneuver. The gastroesophageal junction distends normally. The stomach is normal in configuration and demonstrates normal distensibility. No mass or ulceration is identified. There was no evidence of gastritis. A duodenal diverticulum is incidentally noted. The duodenal bulb and sweep are otherwise unremarkable. Cholecystectomy clips are noted in the right upper quadrant. Fluoroscopy time: 2.6 minutes Fluoroscopic images: 17 IMPRESSION: Unremarkable fluoroscopic upper GI series. Electronically signed by: Jimmy Anne M.D. 08/05/2016 9:26 AM Dictated Date/Time: 08/05/2016 9:25 AM
== END | disposition home or self-care (01) ==
LOC: C.RAD 08:04
PROVIDERS: ATTEND Surgery
DX: R10.13 Epigastric pain (principal); R79.89 Other specified abnormal findings of blood chemistry

== ENCOUNTER → 2016-08-17 | Outpatient (CLI) | payer BC ==
--- NOTE | 2016-08-17 09:55 | DIAGNOSTIC IMAGING REPORT ---
MRCP CLINICAL HISTORY: RIGHT UPPER QUADRANT PAIN pain. Nausea. TECHNIQUE: Multi axial MRI acquisition COMPARISON STUDY: 06/14/2016 FINDINGS: No change in the prior study. Prior cholecystectomy. Liver spleen and pancreas are uniform. No significant adenopathy. Bowel pattern is nonobstructive. Left adrenal nodule is stable. Slight irregularity/tortuosity of the mid common duct unchanged from the prior exam. IMPRESSION: Stable exam with no change from the prior study. Slight biliary ductal prominence considered chronic. Subtle tortuosity mid common duct unchanged from the prior exam. Left adrenal nodule unchanged Electronically signed by: Gaetano Corona M.D. 08/17/2016 9:54 AM Dictated Date/Time: 08/17/2016 9:37 AM
== END | disposition home or self-care (01) ==
LOC: C.MRI 08:22
PROVIDERS: ATTEND Internal Medicine Gastroenterology
DX: R10.13 Epigastric pain (principal); R10.11 Right upper quadrant pain

== ENCOUNTER → 2017-04-27 | Day surgery (SDC) | payer BC, OTHER ==
[2017-04-13 11:18] VITALS: BMI 39.0
[~2017-04-27] VITALS: Ht 175.3 cm; Wt 122.7 kg
[~2017-04-27] MED LIST changes: -ATOR-24 PO; +CETI10TA84 PO; +COLE1TAB5 PO; +DOXY-300 PO; +HYZ/10015 PO; +LIDOCAINE HCL 2% 2 ML VIAL (20MG/ML) ONE; -LOSA50TA6 PO; -MAGN400T6 PO; +PROPOFOL IV EMULSION 10 MG/ML 20 ML VIAL IV ONE; +PSEU60TA80 PO; +SODIUM CHLORIDE 0.9% 500ML 500 ML IV ONE; +[UNRECOGNIZED DRUG - OTHER] PO
[2017-04-27 12:28] VITALS: Ht 175.3 cm; Wt 122.7 kg
--- NOTE | 2017-04-27 13:37 | Endo History and Physical ---
History & Physical Date of Service: Apr 27, 2017. Chief Complaint: SCREENING Referring Physician: DR NAVARRO History of Present Illness screening colon Past Surgical History Hx Cardiac Surgery: No Hx Internal Defibrillator: No Hx Pacemaker: No Hx Abdominal Surgery: Yes (TRAM, PARTIAL HYSTER) Hx of Implantable Prosthesis: No Hx Post-Op Nausea and Vomiting: No Hx Cancer Surgery: No Hx Thoracic Surgery: No Hx Orthopedic: No Hx Urinary Tract Surgery: No Family History None Social History Smoking Status: Never Smoker Hx Substance Use: No Hx Alcohol Use: No Allergies Coded Allergies: No Known Allergies (Verified , 04/27/17) Current Medications Reported Home Medications Medications Dose Route/Sig Max Daily Dose Days Date Category Dose Instructions Mucinex D (Pseudoephedrine-Guaifenesin) 1 Tab Tab 1 Tab PO BID PRN 04/13/17 Reported [Choline Phosphatidyl] 1 Tab PO DAILY 04/13/17 Reported Zyrtec (Cetirizine HCl) 10 Mg Tab 10 Mg PO QPM 04/13/17 Reported Colestipol Hcl 1 Gm Tab 1 Tab PO DAILY 04/13/17 Reported TAKES WITH LARGEST MEAL OF DAY Hyzaar 25MG/100MG (HCTZ/Losartan Potassium) Tab 1 Tab PO QAM 04/13/17 Reported Metformin HCl 500 Mg Tab 500 Mg PO LUNCH 06/14/16 Reported Norvasc (Amlodipine Besylate) 10 Mg Tab 10 Mg PO QPM 06/03/16 Reported Co Q-10 (Coenzyme Q10 (Ubidecarenone)) 75 Mg Cap 1 Cap PO NOON 06/03/16 Reported Vitamin D3 (Cholecalciferol) 1,000 Unit Tab 1,000 Unit PO QAM 06/03/16 Reported Vital Signs Weight (Kilograms): 122.73 Height (Feet): 5 Height (Inches): 9 Date Time Temp Pulse Resp B/P (MAP) Pulse Ox O2 Delivery O2 Flow Rate FiO2 04/27/17 12:33 37.1 98 16 168/85 (112) 97 Room Air Physical Exam General Appearance: WD/WN, no apparent distress Respiratory/Chest: Auscultation: breath sounds normal Cardiovascular: Heart Auscultation: RRR Abdomen: Bowel Sounds: normal Inspection & Palpation: soft, non-distended, no tenderness, guarding & rebound Assessment and Plan colonoscopy with possible bx tiki
--- NOTE | 2017-04-27 14:44 | GI REPORT ---
Procedure Date: 04/27/2017 12:51 PM Procedure: Colonoscopy Indications: Screening for colorectal malignant neoplasm Medicines: Propofol per Anesthesia Complications: No immediate complications. Estimated blood loss: Minimal. Estimated Blood Loss: Estimated blood loss was minimal. Procedure: Pre-Anesthesia Assessment: - Prior to the procedure, a History and Physical was performed, and patient medications and allergies were reviewed. The patient's tolerance of previous anesthesia was also reviewed. The risks and benefits of the procedure and the sedation options and risks were discussed with the patient. All questions were answered, and informed consent was obtained. Prior Anticoagulants: The patient has taken no previous anticoagulant or antiplatelet agents. ASA Grade Assessment: III - A patient with severe systemic disease. After reviewing the risks and benefits, the patient was deemed in satisfactory condition to undergo the procedure. After I obtained informed consent, the scope was passed under direct vision. Throughout the procedure, the patient's blood pressure, pulse, and oxygen saturations were monitored continuously. The scope was introduced through the anus and advanced to the terminal ileum, with identification of the appendiceal orifice and IC valve. The colonoscopy was performed without difficulty. The patient tolerated the procedure well. The quality of the bowel preparation was good. Findings: The perianal and digital rectal examinations were normal. Pertinent negatives include normal sphincter tone, no palpable rectal lesions and no anal lesion or abnormality was detected. A 4 mm polyp was found in the cecum. The polyp was sessile. The polyp was removed with a cold biopsy forceps. Resection and retrieval were complete. Estimated blood loss was minimal. Verification of patient identification for the specimen was done by the physician and stage technician using the patient's name and medical record number. A 3 mm polyp was found in the ascending colon. The polyp was sessile. The polyp was removed with a cold biopsy forceps. Resection and retrieval were complete. Estimated blood loss was minimal. Verification of patient identification for the specimen was done by the physician and stage technician using the patient's name and medical record number. A few small-mouthed diverticula were found in the sigmoid colon and ascending colon. The descending colon and ascending colon appeared normal. Biopsies for histology were taken with a cold forceps from the ascending colon, descending colon and rectum for evaluation of microscopic colitis. Verification of patient identification for the specimen was done by the physician and stage technician using the patient's name and medical record number. The retroflexed view of the distal rectum and anal verge was normal and showed no anal or rectal abnormalities. An area of mildly congested mucosa was found in the rectum. This was biopsied with a cold forceps for histology. Verification of patient identification for the specimen was done by the physician and stage technician using the patient's name and medical record number. Impression: - One 4 mm polyp in the cecum, removed with a cold biopsy forceps. Resected and retrieved. - One 3 mm polyp in the ascending colon, removed with a cold biopsy forceps. Resected and retrieved. - Diverticulosis in the sigmoid colon and in the ascending colon. - The descending colon and ascending colon are normal. Biopsied. - The distal rectum and anal verge are normal on retroflexion view. - Congested mucosa in the rectum. Biopsied. Recommendation: - Discharge patient to home (ambulatory). - Resume regular diet. - Continue present medications. - Await pathology results. - Repeat colonoscopy for surveillance based on pathology results. - Return to GI clinic as previously scheduled. - Return to referring physician as previously scheduled. MD Greg Weir MD 04/27/2017 2:44:32 PM This report has been signed electronically. Note Initiated On: 04/27/2017 12:51 PM I attest to the content of the Intraoperative Record and orders documented therein, exceptions below
--- NOTE | 2017-04-27 14:50 | Discharge Instructions ---
Endoscopy Patient Instructions Date / Procedure(s) Performed Apr 27, 2017. Colonoscopy Allergy Information Coded Allergies: No Known Allergies (Verified , 04/27/17) Discharge Date / Findings Apr 27, 2017. polyps random bx Medication Instructions Stopped Medication(s): METFORMIN Restart Stopped Medication(s): Reported Home Medications Medications Dose Route/Sig Max Daily Dose Days Date Category Dose Instructions Mucinex D (Pseudoephedrine-Guaifenesin) 1 Tab Tab 1 Tab PO BID PRN 04/13/17 Reported [Choline Phosphatidyl] 1 Tab PO DAILY 04/13/17 Reported Zyrtec (Cetirizine HCl) 10 Mg Tab 10 Mg PO QPM 04/13/17 Reported Colestipol Hcl 1 Gm Tab 1 Tab PO DAILY 04/13/17 Reported TAKES WITH LARGEST MEAL OF DAY Hyzaar 25MG/100MG (HCTZ/Losartan Potassium) Tab 1 Tab PO QAM 04/13/17 Reported Metformin HCl 500 Mg Tab 500 Mg PO LUNCH 06/14/16 Reported Norvasc (Amlodipine Besylate) 10 Mg Tab 10 Mg PO QPM 06/03/16 Reported Co Q-10 (Coenzyme Q10 (Ubidecarenone)) 75 Mg Cap 1 Cap PO NOON 06/03/16 Reported Vitamin D3 (Cholecalciferol) 1,000 Unit Tab 1,000 Unit PO QAM 06/03/16 Reported Reported Home Medications Medications Dose Route/Sig Max Daily Dose Days Date Category Dose Instructions Mucinex D (Pseudoephedrine-Guaifenesin) 1 Tab Tab 1 Tab PO BID PRN 04/13/17 Reported [Choline Phosphatidyl] 1 Tab PO DAILY 04/13/17 Reported Zyrtec (Cetirizine HCl) 10 Mg Tab 10 Mg PO QPM 04/13/17 Reported Colestipol Hcl 1 Gm Tab 1 Tab PO DAILY 04/13/17 Reported TAKES WITH LARGEST MEAL OF DAY Hyzaar 25MG/100MG (HCTZ/Losartan Potassium) Tab 1 Tab PO QAM 04/13/17 Reported Metformin HCl 500 Mg Tab 500 Mg PO LUNCH 06/14/16 Reported Norvasc (Amlodipine Besylate) 10 Mg Tab 10 Mg PO QPM 06/03/16 Reported Co Q-10 (Coenzyme Q10 (Ubidecarenone)) 75 Mg Cap 1 Cap PO NOON 06/03/16 Reported Vitamin D3 (Cholecalciferol) 1,000 Unit Tab 1,000 Unit PO QAM 06/03/16 Reported Provider Instructions Activity Restrictions - No exercising or heavy lifting for 24 hours. - Do not drink alcohol the day of the procedure. - Do not drive a car or operate machinery until the day after the procedure. - Do not make any important decisions or sign important papers in 24 hours after the procedure. Following Day: - Return to full activity which may include returning to work/school. Diet Start your diet with liquids and light foods (jello, soup, juice, toast). Then eat your usual diet if not nauseated. Treatment For Common After Affects For mild abdominal pain, bloating, or excessive gas: - Rest - Eat lightly - Lie on right side Follow-Up Information Follow-up with DR NAVARRO as scheduled Anesthesia Information What You Should Know You have had a procedure that required some medicine to reduce anxiety and discomfort. This treatment is called moderate sedation. After receiving the treatment, you may be sleepy, but you will be able to breathe on your own. The effects of the treatment may last for several hours. Follow these instructions along with Activity/Diet recommendations noted above: * Do NOT do anything where dizziness or clumsiness would be dangerous. * Rest quietly at home today, then you can be up and about tomorrow. * Have a responsible person stay with you the rest of today. * You may have had an I.V. today. If so, you may take the dressing off later today. Recommendations Call your doctor if: * Trouble breathing * Continuous vomiting for more than 24 hours * Temperature above 101 degrees * Severe abdominal pain or bloating * Pain not relieved by pain medicine ordered * There is increased drainage or redness from any incision * A large amount of rectal bleeding greater than 2-3 tablespoons. (If you had a polyp/s removed or have hemorrhoids, a small amount of blood - from the rectum is to be expected.) * You have any unanswered questions or concerns. IN THE EVENT OF A SERIOUS EMERGENCY, GO TO THE NEAREST EMERGENCY ROOM Your discharge instructions were prepared by provider Greg Beltre. Patient Instructions Signature Page Angeline Smith Patient (or Guardian) Signature/Date: I have read and understand the instructions given to me by my caregivers. Caregiver/RN/Doctor Signature/Date: The above-named patient and/or guardian has received patient instructions on this date. + Original Patient Signature Page (only) stays with chart. Please make copy for patient.
--- NOTE | 2017-04-27 15:04 | Anesthesiology Progress Note ---
Anesthesia Post Op Note Date & Time Apr 27, 2017 at 15:03 Vital Signs Pain Intensity: 0 Vital Signs Past 12 Hours Date Time Temp Pulse Resp B/P (MAP) Pulse Ox O2 Delivery O2 Flow Rate FiO2 04/27/17 14:52 70 18 149/102 (118) 98 Room Air 04/27/17 14:37 76 16 107/69 (82) 95 Room Air 04/27/17 12:33 37.1 98 16 168/85 (112) 97 Room Air Notes Mental Status: alert / awake / arousable, participated in evaluation Pt Amnestic to Procedure: Yes Nausea / Vomiting: adequately controlled Pain: adequately controlled Airway Patency, RR, SpO2: stable & adequate BP & HR: stable & adequate Hydration State: stable & adequate Anesthetic Complications: no major complications apparent
[2017-04-27 15:07] VITALS: BP 159/97; PULSE 72; O2SAT 97
== END | disposition home or self-care (01) ==
LOC: C.GI 12:12
PROVIDERS: ATTEND Internal Medicine Gastroenterology
DX: Z12.11 Encounter for screening for malignant neoplasm of colon (principal); D12.0 Benign neoplasm of cecum; D12.2 Benign neoplasm of ascending colon; K57.30 Diverticulosis of large intestine without perforation or abscess without bleeding; R19.7 Diarrhea, unspecified; E11.9 Type 2 diabetes mellitus without complications; E66.9 Obesity, unspecified; Z90.49 Acquired absence of other specified parts of digestive tract; Z90.710 Acquired absence of both cervix and uterus

== ENCOUNTER → 2017-08-30 | Outpatient (CLI) | payer OTHER ==
[~2017-08-30] MED LIST changes: -DOXY-300 PO; -LIDOCAINE HCL 2% 2 ML VIAL (20MG/ML) ONE; -PROPOFOL IV EMULSION 10 MG/ML 20 ML VIAL IV ONE; -SODIUM CHLORIDE 0.9% 500ML 500 ML IV ONE
--- NOTE | 2017-08-31 14:22 | MAMMOGRAPHY REPORT ---
BILATERAL DIGITAL SCREENING MAMMOGRAM TOMOSYNTHESIS WITH CAD: 08/30/2017 CLINICAL HISTORY: Routine screening. Patient has no complaints. TECHNIQUE: Breast tomosynthesis in addition to standard 2D mammography was performed. Current study was also evaluated with a Computer Aided Detection (CAD) system. COMPARISON: Comparison is made to exams dated: 07/01/2011 mammogram - [facility], 1 05/29/2007, and 09/19/2006. BREAST COMPOSITION: There are scattered areas of fibroglandular density in both breasts. FINDINGS: There is stable asymmetry in the lateral right breast. No suspicious mass, architectural di stortion or cluster of microcalcifications is seen. IMPRESSION: ACR BI-RADS CATEGORY 1: NEGATIVE There is no mammographic evidence of malignancy. A 1 year screening mammogram is recommended. The pa tient will receive written notification of the results. Approximately 10% of breast cancers are not detected with mammography. A negative mammographic report should not delay biopsy if a clinically suggestive mass is present. Roya Sharp M.D. ay/:08/30/2017 16:27:38 Fleet Driver: Luba MOLINA)([place]), [facility] letter sent: Normal 1/2 BI-RADS Code: ACR BI-RADS Category 1: Negative
== END | disposition home or self-care (01) ==
LOC: C.MAMM 15:04
PROVIDERS: ATTEND Family Medicine
DX: Z12.31 Encounter for screening mammogram for malignant neoplasm of breast (principal)